=== PATIENT | male | born 1940 | race Caucasian/White ===

== ENCOUNTER 2020-03-10 07:20 | Outpatient (CLI) | payer MEDICARE, SELFPAY | END 2020-03-10 07:21 | disposition home or self-care (01) | PROVIDERS: PCP Internal Medicine; Visit Provider Internal Medicine | DX: R06.00 Dyspnea, unspecified (principal); I25.10 Atherosclerotic heart disease of native coronary artery without angina pectoris | CPT/HCPCS: 93306 ==

== ENCOUNTER 2020-06-23 08:59 | Outpatient (CLI) | payer MEDICARE, SELFPAY ==
--- NOTE | ~2020-06-23 | XR_ITS ---
EXAMINATION: XR chest 2V 06/23/2020 09:41 INDICATION: Hypertension. Coronary artery disease. PROCEDURE: 2 view chest COMPARISON: 09/06/2018 FINDINGS: The lungs are clear. The cardiomediastinal silhouette is within normal limits. There are no pleural effusions. There is no pneumothorax suspected. IMPRESSION: 1: NO ACUTE CARDIOPULMONARY DISEASE. Reviewed, dictated and finalized at location B.
[2020-06-23 09:19] LABS: Basophils Absolute Auto 0.01 K/mm3 (0.00-0.10); Basophils Percent Auto 0.2 % (0.0-1.0); Eosinophils Absolute Auto 0.07 K/mm3 (0.02-0.50); Eosinophils Percent Auto 1.6 % (1.0-6.0); Hematocrit 37.5 % (37.0-46.0); Hemoglobin 12.5 g/dL (12.4-15.3); Immature Granulocyte Absolute 0.01 K/mm3 (0.00-0.00); Immature Granulocyte Percent A 0.2 % (0.0-0.0); Lymphocytes Absolute Auto 1.38 K/mm3 (1.10-4.50); Lymphocytes Percent Auto 32.5 % (18.0-42.0); Mean Corpuscular HGB Conc 33.3 g/dL (32.0-36.0); Mean Corpuscular Volume 95.9 fL (78.0-102.0); Mean Platelet Volume 9.6 fl (8.7-11.0); Monocytes Absolute Auto 0.49 K/mm3 (0.10-0.90); Monocytes Percent Auto 11.5 % (2.0-11.0); Neutrophils Absolute Auto 2.3 K/mm3 (1.7-7.2); Platelet Count Result 152 K/mm3 (150-420); Red Blood Count 3.91 M/mm3 (4.70-6.10); Red Cell Distribution Width 12.7 % (11.6-14.4); White Blood Count 4.3 K/mm3 (4.8-10.8)
[2020-06-23 09:29] LABS: Add Urine Microscopic? YES; Appearance Urine Clear (Clear); Bilirubin Urine Negative (Negative); Blood Urine Negative (Negative); Color Urine Yellow (Yellow); Glucose Urine UA Negative (Negative); Ketones Urine Negative (Negative); Leukocyte Esterase Ur Negative LEU/UL (Negative); Nitrate Urine Positive (Negative); Protein Urine Negative (Negative); Specific Grav Ur >= 1.030 (1.010-1.020); Urobilinogen Urine 0.2 mg/dL (0.2-1.0)
--- NOTE | 2020-06-23 09:30 | ECG_ITS ---
Measurements Intervals [place] Rate: 53 P: 64 LA: 233 QRS: 31 QRSD: 109 T: 61 QT: 421 QTc: 395 Interpretive Statements SINUS BRADYCARDIA WITH FIRST DEGREE AV BLOCK ATRIAL PREMATURE COMPLEXES DELAYED PRECORDIAL R/S TRANSITION ABNORMAL ECG Electronically Signed On 06-23-2020 11:07:25 CDT by Ced Whitten D.O.
[2020-06-23 09:35] LABS: Partial Thromboplastin Time 30.3 SEC (22.3-31.6); Prothrombin Time 10.8 Seconds (9.64-11.0)
[2020-06-23 09:38] LABS: Bacteria Urine Trace /hpf; RBC Urine 0-2 /hpf (0-2); WBC Urine 0-3 /hpf (0-3)
[2020-06-23 09:39] LABS: Mucus Urine Moderate /lpf
[2020-06-23 10:01] LABS: Anion Gap 5 mmol/L (8-16); Blood Urea Nitrogen 18 mg/dL (7-18); Calcium 9.1 mg/dL (8.5-10.1); Carbon Dioxide 31 mmol/L (21-32); Chloride 106 mmol/L (98-108); Estimated Glomerular Filt Rate > 60; Glucose 99 mg/dL (70-99); Osmolality Calculated 295 mOsm/kg (285-295); Potassium 4.5 mmol/L (3.5-5.1); Sodium 142 mmol/L (136-145)
== END 2020-06-23 09:00 | disposition home or self-care (01) ==
PROVIDERS: PCP Internal Medicine; Visit Provider Internal Medicine
DX: E53.8 Deficiency of other specified B group vitamins (principal); I10 Essential (primary) hypertension; I25.10 Atherosclerotic heart disease of native coronary artery without angina pectoris; Z01.818 Encounter for other preprocedural examination; Z51.81 Encounter for therapeutic drug level monitoring; R82.90 Unspecified abnormal findings in urine
CPT/HCPCS: 36415; 71046; 80048; 81001; 85025; 85610; 85730; 87086; 93005

== ENCOUNTER 2020-09-11 11:37 | Outpatient (CLI) | payer MEDICARE, SELFPAY ==
--- NOTE | ~2020-09-11 | XR_ITS ---
XR foot LT min 3V DATE: 09/11/2020 12:00 INDICATION: Left foot pain, fourth digit. No known injury. TECHNIQUE: 4 views COMPARISON: None FINDINGS: Prominent posterior calcaneal enthesopathy. There is osteoarthritic change at the distal interphalangeal joint of the third digit No fracture, dislocation, periosteal reaction or bone destruction. IMPRESSION: Posterior calcaneal enthesopathy Osteoarthritic change at distal interphalangeal joint of third digit Reviewed, dictated and finalized at location A. 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
== END 2020-09-11 11:38 | disposition home or self-care (01) ==
LOC: CHSIMG 11:39
PROVIDERS: PCP Internal Medicine; Visit Provider Podiatrist
DX: M79.672 Pain in left foot (principal)
CPT/HCPCS: 73630

== ENCOUNTER 2020-12-19 07:45 | Outpatient (RCR) | payer MEDICARE, SELFPAY ==
--- NOTE | 2020-12-19 07:37 | PTOPEVAL ---
Thank you for referring Andre Godfrey to [facility].? The patient is scheduled to be seen for therapy? __2__x/week for 12 visits. Please review, sign, date and return this plan of care OPAL. I agree with and certify that the following plan of care is medically necessary. Referring Physician Date Admitting Provider: Attending Provider: Michael Addison MD Referring Provider: *PT Outpatient Evaluation Start: 12/19/20 07:00 Freq: Status: Active Protocol: Document 12/19/20 07:00 DAVID (Rec: 12/19/20 07:36 DAVID [email or web address]) Therapy Assessment Status Assessment Status Assessment Status Evaluation Evaluation Information Problem Diagnosis abnormal gait Onset 07/11/20 Subjective Information Pt. reports that he underwent Query Text:As Reported By Patient/ back surgery on 07/11/20. He Family reports that following back surgery he started noticing weakness in the left leg around the ankle. He reports that he enjoys bicycling but notes difficulty with pushing with the left leg. He denies falling or stumbling, but states that he has to pay attention to how he walks. He reports that his goal is to improve his strength. Prior Level of Function Activity Level (Last 3 Months) Occupation retired Hand Dominance Right Activity of Daily Living Ability Independent Indoor/Home Mobility Independent Community Mobility Independent Stairs Ability Independent Functional Cognition (Planning, Shopping Independent , Taking Medications) Cooking Yes Cleaning Yes Laundry Yes Shopping Yes Driving Yes Pain Assessment Self Report Self Report Pain Level 0 Pain Score Pain Score 0: Self Report Cervical and Lumbar ROM Lumbar ROM Lumbar Flexion Active Ankle Query Text:Hands to: Lumbar Extension (0-40) 5 Query Text:Active in Degrees Lumbar Lateral Flexion Right (0-40) 25 Query Text:Active in Degrees Lumbar Lateral Flexion Left (0-40) 25 Query Text:Active in Degrees Lower Extremity Muscle Strength Testing General Lower Extremity Strength Gross Lower Extremity Strength right hip flexion 5/5 left hip flexion 4/5 right knee flexion 5/5
== END 2021-01-25 09:12 | disposition home or self-care (01) ==
LOC: CHSPT 07:45
PROVIDERS: PCP Internal Medicine; Visit Provider Internal Medicine
DX: R53.1 Weakness (principal); R26.9 Unspecified abnormalities of gait and mobility
CPT/HCPCS: 97110; 97161; 97530

== ENCOUNTER 2021-02-07 08:16 | Outpatient (CLI) | payer MEDICARE, SELFPAY ==
--- NOTE | 2021-02-07 11:00 | NEURO_ITS ---
Impression: # Complains of paresthesia in left lower extremity and difficulty in use of left foot. 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 # Higher involvement cannot be ruled out. Nerve Conduction Studies Anti Sensory Summary Table Stim Site NR Peak (ms) P-T Amp (?V) Site1 Site2 Delta-P (ms) Dist (cm) Manjinder (m/s) Left Sup Fibular Anti Sensory (Ant Lat Mall) 14 cm 3.8 5.1 14 cm Ant Lat Mall 3.8 16.0 42 Left Sural Anti Sensory (Lat Mall) Calf 3.9 14.8 Calf Lat Mall 3.9 16.0 41 Motor Summary Table Stim Site NR Onset (ms) O-P Amp (mV) Site1 Site2 Delta-0 (ms) Dist (cm) Manjinder (m/s) Left Lateral Plantar Motor (ADM) Med Mall 5.6 0.4 Left Peroneal Motor (Vastus Med) Ankle 5.9 0.8 Popit Ankle 10.4 39.0 38 Popit 16.3 0.8 Left Tibial Motor (Abd Castaneda Brev) Ankle 5.9 0.1 Knee Ankle 12.3 43.0 35 Knee 18.2 0.5 F Wave Studies NR F-Lat (ms) L-R F-Lat (ms) Left Peroneal (Mrkrs) (EDB) 57.16 Left Tibial (Mrkrs) (Abd Hallucis) 58.13 EMG Side Muscle Nerve Root Ins Act Fibs Amp Dur Recrt Comment Left AntTibialis Dp Br Fibular L4-5 Nml Nml Nml Nml Nml Left Gastroc Tibial S1-2 Nml Nml Nml Nml Nml Left Fibularis Long Sup Br Fibular L5-S1 Nml Nml Nml Nml Nml Left Flex Dig Long Tibial L5-S2 Nml Nml Nml Nml Nml Left Ext Dig Brev Dp Br Fibular L5, S1 Nml Nml Nml Nml Nml MTDD
== END 2021-02-07 08:17 | disposition home or self-care (01) ==
LOC: ANHNEURO 08:19
PROVIDERS: PCP Internal Medicine; Visit Provider Family Medicine
DX: R20.2 Paresthesia of skin (principal); G62.9 Polyneuropathy, unspecified
CPT/HCPCS: 95886; 95909

== ENCOUNTER 2021-02-23 09:04 | Outpatient (CLI) | payer MEDICARE, SELFPAY ==
[2021-02-23 09:21] LABS: Add Urine Microscopic? YES; Appearance Urine Clear (Clear); Basophils Absolute Auto 0.02 K/mm3 (0.00-0.10); Basophils Percent Auto 0.4 % (0.0-1.0); Bilirubin Urine 1+ (Negative); Blood Urine Negative (Negative); Color Urine Yellow (Yellow); Eosinophils Absolute Auto 0.07 K/mm3 (0.02-0.50); Eosinophils Percent Auto 1.5 % (1.0-6.0); Glucose Urine UA Negative (Negative); Hematocrit 39.6 % (37.0-46.0); Hemoglobin 13.3 g/dL (12.4-15.3); Immature Granulocyte Absolute 0.01 K/mm3 (0.00-0.00); Immature Granulocyte Percent A 0.2 % (0.0-0.0); Ketones Urine Trace (Negative); Leukocyte Esterase Ur Negative (Negative); Lymphocytes Absolute Auto 1.63 K/mm3 (1.10-4.50); Mean Corpuscular HGB Conc 33.6 g/dL (32.0-36.0); Mean Corpuscular Hemoglobin 30.9 pg (27.0-31.0); Mean Corpuscular Volume 91.9 fL (78.0-102.0); Monocytes Absolute Auto 0.48 K/mm3 (0.10-0.90); Neutrophils Absolute Auto 2.6 K/mm3 (1.7-7.2); Neutrophils Percent Auto 53.9 % (50.0-70.0); Nitrate Urine Negative (Negative); Platelet Count Result 171 K/mm3 (150-420); Protein Urine Negative (Negative); Red Blood Count 4.31 M/mm3 (4.70-6.10); Red Cell Distribution Width 12.1 % (11.6-14.4); Specific Grav Ur >= 1.030 (1.010-1.020); White Blood Count 4.8 K/mm3 (4.8-10.8); pH Urine 5.5 (5.0-8.0)
[2021-02-23 09:27] LABS: Bacteria Urine Trace /hpf; Mucus Urine Moderate /lpf; RBC Urine None seen /hpf (0-2); WBC Urine None seen /hpf (0-3)
[2021-02-23 10:40] LABS: Alanine Aminotransferase 33 U/L (16-63); Alkaline Phosphatase 48 U/L (46-116); Anion Gap 7 mmol/L (8-16); Aspartate Amino Transferase 29 U/L (15-37); Blood Urea Nitrogen 20 mg/dL (7-18); Calcium 8.9 mg/dL (8.5-10.1); Carbon Dioxide 29 mmol/L (21-32); Chloride 106 mmol/L (98-108); Cholesterol 111 mg/dL (0-200); Creatine Kinase 260 U/L (39-308); Estimated Glomerular Filt Rate > 60; Glucose 99 mg/dL (70-99); HDL Direct 51 mg/dL (40-60); LDL Cholesterol Calculated 46 mg/dL (<130); Osmolality Calculated 296 mOsm/kg (285-295); Potassium 4.7 mmol/L (3.5-5.1); Sodium 142 mmol/L (136-145); Total Protein 6.8 g/dL (6.4-8.2); Triglycerides 70 mg/dL (0-150); Vitamin B12 1008 pg/mL (193-986)
== END 2021-02-23 09:05 | disposition home or self-care (01) ==
LOC: CHSLAB 09:06
PROVIDERS: PCP Internal Medicine; Visit Provider Internal Medicine
DX: E78.2 Mixed hyperlipidemia (principal); I10 Essential (primary) hypertension; G62.9 Polyneuropathy, unspecified
CPT/HCPCS: 36415; 80053; 80061; 81001; 82550; 82607; 85025

== ENCOUNTER → 2021-08-02 08:19 | Outpatient (CLI) | payer MEDICARE, SELFPAY ==
--- NOTE | ~2021-08-02 | MR_ITS ---
EXAMINATION: MR lumbar spine wo [facility] EXAM DATE: 08/02/2021 08:55 INDICATION: Lumbosacral radiculopathy TECHNIQUE: Multi-sequential, multiplanar MR images of the lumbar spine were obtained without contrast . Sagittal T1, T2, T2 fat saturation images. Axial T2 weighted images. Comparison is made to prior examination from 10/18/2019. FINDINGS: There has been interval left hemilaminotomy at L1-2, with posterior decompression. There is moderate disc disease T10-11, mild to moderate T11-12, T12-L1 and L5-S1. There is moderate disc dise ase L1-L3, moderate to severe L3-L5. The conus medullaris terminates at the L1 level and has normal s ignal intensity and morphology. Multilevel endplate degenerative signal change. There is 2-3 mm retr olisthesis L2 on L3, 3 mm retrolisthesis L3 on L4 and L4 on L5. Paraspinal soft tissue is unremarkabl e. Level by level evaluation: T12-L1: There is a mild to moderate diffuse disc bulge. Facet arthropathy: Moderate to severe . Ligamentum flavum enlargement. Neural foraminal stenosis: Mild bilateral. Central canal stenosis: Mild to moderate. L1-L2: There is a moderate diffuse disc bulge. Facet arthropathy: Moderate. Neural foraminal stenosis: Mild to moderate left, mild right. Central canal stenosis: Mild, interval posterior decompression. L2-L3: There is a moderate diffuse disc bulge. Facet arthropathy: Moderate. Neural foraminal stenosis: Mild to moderate bilateral. Central canal stenosis: Mild to moderate. L3-L4: There is a moderate diffuse disc bulge. Facet arthropathy: Moderate to severe. Neural foraminal stenosis: Moderate bilateral. Central canal stenosis: Mild. L4-L5: There is a moderate to large diffuse disc bulge. Facet arthropathy: Moderate to severe. Neural foraminal stenosis: Moderate to severe bilateral. Central canal stenosis: Mild. L5-S1: There is a moderate diffuse disc bulge. Facet arthropathy: Moderate. Neural foraminal stenosis: Moderate to severe right, mild to moderate left. Central canal stenosis: Mild. As previously stated, there is been interval left hemilaminotomy at L1-2. Otherwise, it is difficult to appreciate any significant interval change. IMPRESSION: Moderate to severe lumbar spondylosis. Reviewed, dictated and finalized at location B.
== END ==
PROVIDERS: PCP Internal Medicine
DX: M47.25 Other spondylosis with radiculopathy, thoracolumbar region (principal); M48.05 Spinal stenosis, thoracolumbar region; M47.27 Other spondylosis with radiculopathy, lumbosacral region; M48.07 Spinal stenosis, lumbosacral region
CPT/HCPCS: 72148

== ENCOUNTER 2021-09-10 07:27 | Outpatient (CLI) | payer MEDICARE, SELFPAY ==
--- NOTE | ~2021-09-10 | MR_ITS ---
EXAMINATION: MR knee RT wo con DATE: 09/10/2021 08:34 INDICATION: Right knee pain TECHNIQUE: Magnetic resonance imaging (MRI) of the right knee was performed without intravenous contr ast. Sequences included coronal PD-weighted FSE, coronal PD-weighted FS FSE, sagittal T2-weighted FS E, sagittal PD-weighted FS FSE and axial PD weighted fat saturated FSE. COMPARISON: None. FINDINGS: Medial compartment: Complex medial meniscal tear with macerated appearance near the posterior root and more extensive turner gitudinal horizontal tear component extending across the posterior horn into the meniscal body. There is deep chondral ulceration and fissuring at the central weightbearing medial femoral condyle. There is partial thickness cartilage loss with chondral surface regularity along the more anterior and pos terior weightbearing medial femoral condyle and with smooth chondral surface along the medial tibial plateau. There is subtle depression with flattening of a portion of the articular cortex at the anter ior weightbearing medial femoral condyle with prominent increased marrow signal surrounding a curvili near low signal intensity subarticular fracture line. Lateral compartment: Normal variant medial oblique meniscal meniscal ligament extending from the region of the anterior ro ot of the medial meniscus across the intercondylar eminence to its confluence with the medial posteri or horn of the lateral meniscus. Lateral meniscus is otherwise normal. Partial-thickness chondral fis suring involving less than 50% the cartilage thickness at the central to medial aspect of the lateral tibial plateau and juxtaposed anterior weightbearing lateral femoral condyle. Patellofemoral compartment: Small central subchondral osteophyte and minimal subarticular edema at the site of deep chondral ulce ration along the medial patellar facet. Partial-thickness chondral fissuring along the apical ridge a nd at the central aspect of the lateral facet. Trochlear cartilage is normal. Ligaments and tendons: Anterior and posterior cruciate ligaments are normal. Mild thickening and mild increased signal at th e proximal aspect of the medial and fibular collateral ligaments without significant surrounding martha a likely sequela of mild scarring related to chronic sprains. The extensor mechanism is normal. The v isualized medial and lateral hamstring tendons as well as the iliotibial band are normal. Fluid: Moderate-sized knee joint effusion. No loose osteochondral bodies identified. Synovitis within a 3.2 x 3.0 x 0.6 similar prepatellar bursa with prominent surrounding subcutaneous edema. There is additio nal likely reactive soft tissue edema along side the medial femoral condyle. IMPRESSION: 1. Complex medial meniscal tear. 2. Slight depression of the articular cortex at the anterior weightbearing medial femoral condyle wit h prominent marrow edema surrounding a subchondral fracture with mild flattening of the articular cor renato which could be due to discrete trauma, insufficiency fracture or most likely stress fracture rela keyonna to altered stress distribution resulting from the meniscal tear. 3. 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 4. Mild scarring consistent with chronic sprains of the proximal medial and fibular collateral ligame nts. 5. Prepatellar bursitis. 6. Likely reactive moderate sized knee joint effusion. Reviewed, dictated and finalized at location B. 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 Complex medial meniscal tear. 2. Slight depression of the articular cortex at the anterior weightbearing medi al femoral condyle w
== END 2021-09-10 07:28 | disposition home or self-care (01) ==
LOC: ANHIMG 07:31
PROVIDERS: PCP Internal Medicine; Visit Provider Internal Medicine
DX: M25.561 Pain in right knee (principal); S83.231A Complex tear of medial meniscus, current injury, right knee, initial encounter; M79.89 Other specified soft tissue disorders; M17.11 Unilateral primary osteoarthritis, right knee; M94.261 Chondromalacia, right knee; M71.561 Other bursitis, not elsewhere classified, right knee; M25.461 Effusion, right knee
CPT/HCPCS: 73721

== ENCOUNTER 2021-10-03 10:41 | Outpatient (CLI) | payer MEDICARE, SELFPAY ==
[2021-10-03 10:57] LABS: Basophils Absolute Auto 0.02 K/mm3 (0.00-0.10); Basophils Percent Auto 0.4 % (0.0-1.0); Eosinophils Absolute Auto 0.07 K/mm3 (0.02-0.50); Eosinophils Percent Auto 1.4 % (1.0-6.0); Immature Granulocyte Absolute 0.01 K/mm3 (0.00-0.00); Immature Granulocyte Percent A 0.2 % (0.0-0.0); Lymphocytes Absolute Auto 1.08 K/mm3 (1.10-4.50); Lymphocytes Percent Auto 22.1 % (18.0-42.0); Mean Corpuscular HGB Conc 32.5 g/dL (32.0-36.0); Mean Corpuscular Hemoglobin 30.9 pg (27.0-31.0); Mean Platelet Volume 9.8 fl (8.7-11.0); Monocytes Absolute Auto 0.46 K/mm3 (0.10-0.90); Monocytes Percent Auto 9.4 % (2.0-11.0); Neutrophils Absolute Auto 3.3 K/mm3 (1.7-7.2); Neutrophils Percent Auto 66.5 % (50.0-70.0); Platelet Count Result 168 K/mm3 (150-420); Red Blood Count 4.21 M/mm3 (4.70-6.10); Red Cell Distribution Width 12.1 % (11.6-14.4); White Blood Count 4.9 K/mm3 (4.8-10.8)
[2021-10-03 10:58] LABS: Add Urine Microscopic? NO; Appearance Urine Clear (Clear); Bilirubin Urine Negative (Negative); Blood Urine Negative (Negative); Color Urine Yellow (Yellow); Glucose Urine UA Negative (Negative); Ketones Urine Negative (Negative); Leukocyte Esterase Ur Negative (Negative); Nitrate Urine Negative (Negative); Protein Urine Negative (Negative); Specific Grav Ur >= 1.030 (1.010-1.020); Urobilinogen Urine 0.2 mg/dL (0.2-1.0); pH Urine 5.5 (5.0-8.0)
[2021-10-03 11:46] LABS: Alanine Aminotransferase 26 U/L (16-63); Albumin Level 3.9 g/dL (3.4-5.0); Alkaline Phosphatase 48 U/L (46-116); Anion Gap 6 mmol/L (8-16); Aspartate Amino Transferase 28 U/L (15-37); Bilirubin,Total 1.1 mg/dL (0.00-1.00); Blood Urea Nitrogen 17 mg/dL (7-18); Carbon Dioxide 31 mmol/L (21-32); Chloride 107 mmol/L (98-108); Cholesterol 113 mg/dL (0-200); Creatine Kinase 254 U/L (39-308); Estimated Glomerular Filt Rate > 60; Glucose 97 mg/dL (70-99); HDL Direct 54 mg/dL (40-60); LDL Cholesterol Calculated 38 mg/dL (<130); Osmolality Calculated 299 mOsm/kg (285-295); Sodium 144 mmol/L (136-145); Total Protein 6.7 g/dL (6.4-8.2); Triglycerides 106 mg/dL (0-150); Vitamin B12 > 2000 pg/mL (193-986)
== END 2021-10-03 10:42 | disposition home or self-care (01) ==
LOC: CHSLAB 10:45
PROVIDERS: PCP Internal Medicine; Visit Provider Internal Medicine
DX: E78.2 Mixed hyperlipidemia (principal); I10 Essential (primary) hypertension; E53.8 Deficiency of other specified B group vitamins; I25.10 Atherosclerotic heart disease of native coronary artery without angina pectoris
CPT/HCPCS: 36415; 80053; 80061; 81003; 82550; 82607; 85025

== ENCOUNTER 2022-02-06 08:10 | Outpatient (RCR) | payer MEDICARE, SELFPAY ==
--- NOTE | 2022-02-06 08:18 | PTOPEVAL ---
Thank you for referring Andre Godfrey to [facility].? The patient is scheduled to be seen for therapy? ____x/week for ___ weeks. Please review, sign, date and return this plan of care OPAL. I agree with and certify that the following plan of care is medically necessary. Referring Physician Date Admitting Provider: Attending Provider: Michael Addison MD Referring Provider: *PT Outpatient Evaluation Start: 02/06/22 06:54 Freq: Status: Active Protocol: Document 02/06/22 07:00 GERALD (Rec: 02/06/22 08:18 [facility] [email or web address]) Therapy Assessment Status Assessment Status Assessment Status Evaluation Evaluation Information Problem Diagnosis L drop foot Onset 01/31/22 Additional Evaluation Detail LEFS = 30% functionally declined Subjective Information patient reports he had back Query Text:As Reported By Patient/ surgery on 07/11/2020. he Family reports he has noticed a foot drop since the surgery. he reports he has seen several specialists and they have not been able to determine the source of the problem. he reports he is wanting to try acupuncture to the L lower leg . he reports he is able to ride a bike, but is unable to walk long distances. he reports he has no pain. 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 he reports at home he difficulty picking up leaves and bending over due to the back. he reports his main goal is to walk better. Prior Level of Function Comments Additional Prior Level of Function patient has been having issues Comments with the L ankle strength for several years now. Pain Assessment Timing of Pain Assessment Timing of Pain Assessment Assessment Pain Scale Pain Scale Used Numeric (1 - 10) Self Report Pain Assessment Lower Back Reported Pain Level 0 Greatest Pain Intensity 0 Pain Score Pain Score 0: Self Report Interventions Used Interventions Used By Clinicians Activity or ADL's,Education, Environment Modification,
--- NOTE | 2022-03-15 13:34 | PTOPEVAL ---
Thank you for referring Andre Godfrey to [facility].? The patient is scheduled to be seen for therapy? ____x/week for ___ weeks. Please review, sign, date and return this plan of care OPAL. I agree with and certify that the following plan of care is medically necessary. Referring Physician Date Admitting Provider: Attending Provider: Michael Addison MD Referring Provider: *PT Outpatient Evaluation Start: 02/06/22 06:54 Freq: Status: Active Protocol: Document 03/08/22 15:00 GERALD (Rec: 03/08/22 16:04 GERALD [email or web address]) Therapy Assessment Status Assessment Status Assessment Status Discharge Evaluation Information Problem Diagnosis L drop foot Onset 01/31/22 Additional Evaluation Detail LEFS = 35% functionally declined Subjective Information Pt reports that his ankle has Query Text:As Reported By Patient/ made little progress since Family starting therapy in early February. He states that his biggest challenge is walking naturally as his jarocho will not allow him to walk naturally. He says he feels like he has a limp in his L leg. He states that he also has neuropathy in both feet and his foot is sometimes numb . Pain Assessment Timing of Pain Assessment Timing of Pain Assessment Pre-Treatment Self Report Self Report Pain Level 0 Pain Score Pain Score 0: Self Report Lower Extremity Range of Motion Ankle/Foot Range of Motion Left Ankle Dorsiflexion With Knee Extension 25 Range of Motion - Active Ankle Plantarflexion Range of Motion - 45 Active Query Text: Ankle Eversion Range of Motion - Active 10 Ankle Inversion Range of Motion - Active 35 Right Ankle Dorsiflexion With Knee Extension 25 Range of Motion - Active Ankle Plantarflexion Range of Motion - 45 Active Query Text: Ankle Eversion Range of Motion - Active 10 Ankle Inversion Range of Motion - Active 40 Lower Extremity Muscle Strength Testing Ankle Strength Left Ankle Dorsiflexion Strength 5 Normal Ankle Plantarflexion Strength 5 Normal Ankle Eversion Strength 5 Normal Ankle Inversion Strength 5 Normal Ankle Strength Comments 5/5 L ankle PF strength against mmt. however, patient unable to perform 1 single leg heel raise on the L, or
== END 2022-03-08 15:10 | disposition home or self-care (01) ==
LOC: CHSPT 08:10
PROVIDERS: PCP Internal Medicine; Visit Provider Internal Medicine
DX: M21.372 Foot drop, left foot (principal)
CPT/HCPCS: 97110; 97161; 97530

== ENCOUNTER 2022-03-01 09:18 | Outpatient (CLI) | payer MEDICARE, SELFPAY ==
--- NOTE | ~2022-03-01 | CT_ITS ---
EXAMINATION: CT abdomen pelvis wo con DATE: 03/01/2022 11:13 INDICATION: Diverticulitis presenting with lower abdominal pain and diarrhea. TECHNIQUE: Computed tomography (CT) of the abdomen and pelvis was performed without intravenous contr ast. Automated exposure control and iterative reconstruction technique were employed. The dose-length product was 906.76 mGy-cm. COMPARISON: None FINDINGS: Bilateral lung bases are clear. Heart size is normal. Atherosclerotic coronary artery calcification. No pericardial or pleural effusion. Liver, gallbladder, spleen and bilateral adrenal glands are cris l. Punctate calcification at the body of the pancreas may represent sequela of chronic pancreatitis. No bowel obstruction. Chronic mild diffuse fatty infiltration of the colonic wall likely related to b luzmaria habitus. Bladder is normal. No free intraperitoneal gas or fluid. No pathologically enlarged abdo renetta or pelvic lymphadenopathy. Severe thoracolumbar spondylosis with multiple Schmorl's nodes. IMPRESSION: 1. No acute intra-abdominal/pelvic process. Reviewed, dictated and finalized at location B.
[2022-03-01 09:48] LABS: Basophils Absolute Auto 0.02 K/mm3 (0.00-0.10); Basophils Percent Auto 0.4 % (0.0-1.0); Eosinophils Absolute Auto 0.06 K/mm3 (0.02-0.50); Eosinophils Percent Auto 1.3 % (1.0-6.0); Hematocrit 38.4 % (37.0-46.0); Hemoglobin 12.6 g/dL (12.4-15.3); Immature Granulocyte Absolute 0.02 K/mm3 (0.00-0.00); Immature Granulocyte Percent A 0.4 % (0.0-0.0); Lymphocytes Absolute Auto 0.82 K/mm3 (1.10-4.50); Lymphocytes Percent Auto 17.2 % (18.0-42.0); Mean Corpuscular HGB Conc 32.8 g/dL (32.0-36.0); Mean Corpuscular Hemoglobin 31.3 pg (27.0-31.0); Mean Corpuscular Volume 95.5 fL (78.0-102.0); Mean Platelet Volume 9.4 fl (8.7-11.0); Monocytes Absolute Auto 0.46 K/mm3 (0.10-0.90); Monocytes Percent Auto 9.6 % (2.0-11.0); Neutrophils Absolute Auto 3.4 K/mm3 (1.7-7.2); Neutrophils Percent Auto 71.1 % (50.0-70.0); Platelet Count Result 159 K/mm3 (150-420); Red Blood Count 4.02 M/mm3 (4.70-6.10); Red Cell Distribution Width 12.3 % (11.6-14.4); White Blood Count 4.8 K/mm3 (4.8-10.8)
[2022-03-01 10:03] LABS: Alanine Aminotransferase 26 U/L (16-63); Alkaline Phosphatase 48 U/L (46-116); Anion Gap 4 mmol/L (8-16); Aspartate Amino Transferase 32 U/L (15-37); Blood Urea Nitrogen 19 mg/dL (7-18); Calcium 8.9 mg/dL (8.5-10.1); Carbon Dioxide 31 mmol/L (21-32); Chloride 105 mmol/L (98-108); Estimated Glomerular Filt Rate > 60; Glucose 108 mg/dL (70-99); Osmolality Calculated 293 mOsm/kg (285-295); Potassium 4.7 mmol/L (3.5-5.1); Sodium 140 mmol/L (136-145); Total Protein 7.1 g/dL (6.4-8.2)
== END 2022-03-01 09:19 | disposition home or self-care (01) ==
LOC: CHSLAB 09:24
PROVIDERS: PCP Internal Medicine; Visit Provider Internal Medicine
DX: R10.32 Left lower quadrant pain (principal); R19.7 Diarrhea, unspecified
CPT/HCPCS: 74176; 80053; 85025; 87045; 87324; 87427

== ENCOUNTER 2022-04-02 08:10 | Outpatient (CLI) | payer MEDICARE, SELFPAY ==
[2022-04-02 08:31] LABS: Add Urine Microscopic? NO; Appearance Urine Clear (Clear); Bilirubin Urine Negative (Negative); Blood Urine Negative (Negative); Color Urine Yellow (Yellow); Glucose Urine UA Negative (Negative); Ketones Urine Negative (Negative); Leukocyte Esterase Ur Negative (Negative); Nitrate Urine Negative (Negative); Protein Urine Negative (Negative); Specific Grav Ur >= 1.030 (1.010-1.020); Urobilinogen Urine 0.2 mg/dL (0.2-1.0)
[2022-04-02 08:39] LABS: Basophils Absolute Auto 0.01 K/mm3 (0.00-0.10); Basophils Percent Auto 0.3 % (0.0-1.0); Eosinophils Absolute Auto 0.08 K/mm3 (0.02-0.50); Hematocrit 38.8 % (37.0-46.0); Hemoglobin 13.1 g/dL (12.4-15.3); Immature Granulocyte Absolute 0.01 K/mm3 (0.00-0.00); Immature Granulocyte Percent A 0.3 % (0.0-0.0); Lymphocytes Absolute Auto 1.08 K/mm3 (1.10-4.50); Lymphocytes Percent Auto 27.1 % (18.0-42.0); Mean Corpuscular HGB Conc 33.8 g/dL (32.0-36.0); Mean Corpuscular Hemoglobin 31.5 pg (27.0-31.0); Mean Corpuscular Volume 93.3 fL (78.0-102.0); Mean Platelet Volume 9.6 fl (8.7-11.0); Monocytes Absolute Auto 0.36 K/mm3 (0.10-0.90); Neutrophils Absolute Auto 2.5 K/mm3 (1.7-7.2); Neutrophils Percent Auto 61.3 % (50.0-70.0); Platelet Count Result 149 K/mm3 (150-420); Red Blood Count 4.16 M/mm3 (4.70-6.10)
[2022-04-02 08:50] LABS: Hemoglobin A1C 5.4 % (<5.7)
[2022-04-02 09:27] LABS: Alanine Aminotransferase 29 U/L (16-63); Albumin Level 3.8 g/dL (3.4-5.0); Alkaline Phosphatase 47 U/L (46-116); Anion Gap 7 mmol/L (8-16); Aspartate Amino Transferase 26 U/L (15-37); Bilirubin,Total 0.9 mg/dL (0.00-1.00); Blood Urea Nitrogen 18 mg/dL (7-18); Calcium 8.3 mg/dL (8.5-10.1); Carbon Dioxide 28 mmol/L (21-32); Chloride 107 mmol/L (98-108); Cholesterol 108 mg/dL (0-200); Creatine Kinase 187 U/L (39-308); Estimated Glomerular Filt Rate > 60; Glucose 101 mg/dL (70-99); HDL Direct 57 mg/dL (40-60); LDL Cholesterol Calculated 40 mg/dL (<130); Osmolality Calculated 295 mOsm/kg (285-295); Potassium 4.1 mmol/L (3.5-5.1); Prostate Specific Antigen 0.3 ng/mL (< OR = 4.0); Sodium 142 mmol/L (136-145); Total Protein 6.8 g/dL (6.4-8.2); Triglycerides 56 mg/dL (0-150)
[2022-04-02 09:28] LABS: Vitamin B12 > 2000 pg/mL (193-986)
== END 2022-04-02 08:11 | disposition home or self-care (01) ==
LOC: CHSLAB 08:12
PROVIDERS: PCP Internal Medicine; Visit Provider Internal Medicine
DX: E78.2 Mixed hyperlipidemia (principal); I10 Essential (primary) hypertension; G62.9 Polyneuropathy, unspecified; R79.0 Abnormal level of blood mineral; Z12.5 Encounter for screening for malignant neoplasm of prostate
CPT/HCPCS: 36415; 80053; 80061; 81003; 82550; 82607; 83036; 84153; 85025; G0103

== ENCOUNTER 2022-05-22 14:12 | Outpatient (CLI) | payer MEDICARE, SELFPAY ==
[2022-05-22 14:24] LABS: Basophils Absolute Auto 0.01 K/mm3 (0.00-0.10); Basophils Percent Auto 0.2 % (0.0-1.0); Eosinophils Absolute Auto 0.05 K/mm3 (0.02-0.50); Eosinophils Percent Auto 0.9 % (1.0-6.0); Hematocrit 36.9 % (37.0-46.0); Hemoglobin 12.5 g/dL (12.4-15.3); Immature Granulocyte Absolute 0.03 K/mm3 (0.00-0.00); Immature Granulocyte Percent A 0.6 % (0.0-0.0); Lymphocytes Percent Auto 24.3 % (18.0-42.0); Mean Corpuscular HGB Conc 33.9 g/dL (32.0-36.0); Mean Corpuscular Hemoglobin 31.6 pg (27.0-31.0); Mean Corpuscular Volume 93.2 fL (78.0-102.0); Mean Platelet Volume 9.7 fl (8.7-11.0); Monocytes Absolute Auto 0.49 K/mm3 (0.10-0.90); Monocytes Percent Auto 9.1 % (2.0-11.0); Neutrophils Absolute Auto 3.5 K/mm3 (1.7-7.2); Neutrophils Percent Auto 64.9 % (50.0-70.0); Platelet Count Result 183 K/mm3 (150-420); Red Blood Count 3.96 M/mm3 (4.70-6.10); Red Cell Distribution Width 12.1 % (11.6-14.4); White Blood Count 5.4 K/mm3 (4.8-10.8)
[2022-05-22 14:34] LABS: Anion Gap 7 mmol/L (8-16); Blood Urea Nitrogen 22 mg/dL (7-18); Calcium 9.4 mg/dL (8.5-10.1); Carbon Dioxide 28 mmol/L (21-32); Chloride 106 mmol/L (98-108); Estimated Glomerular Filt Rate > 60; Glucose 92 mg/dL (70-99); Osmolality Calculated 295 mOsm/kg (285-295); Potassium 4.5 mmol/L (3.5-5.1); Sodium 141 mmol/L (136-145)
== END 2022-05-22 14:13 | disposition home or self-care (01) ==
LOC: CHSLAB 14:15
PROVIDERS: PCP Internal Medicine; Visit Provider Internal Medicine
DX: I10 Essential (primary) hypertension (principal)
CPT/HCPCS: 36415; 80048; 85025

== ENCOUNTER 2022-11-04 09:37 | Outpatient (CLI) | payer MEDICARE, SELFPAY ==
[2022-11-04 09:56] LABS: Basophils Absolute Auto 0.02 K/mm3 (0.00-0.10); Basophils Percent Auto 0.5 % (0.0-1.0); Eosinophils Absolute Auto 0.07 K/mm3 (0.02-0.50); Eosinophils Percent Auto 1.8 % (1.0-6.0); Hematocrit 38.2 % (37.0-46.0); Hemoglobin 12.7 g/dL (12.4-15.3); Immature Granulocyte Absolute 0.01 K/mm3 (0.00-0.00); Immature Granulocyte Percent A 0.3 % (0.0-0.0); Immature Reticulocyte Fraction 7.7 % (2.0-16.52); Lymphocytes Absolute Auto 0.94 K/mm3 (1.10-4.50); Lymphocytes Percent Auto 23.7 % (18.0-42.0); Mean Corpuscular HGB Conc 33.2 g/dL (32.0-36.0); Mean Corpuscular Hemoglobin 31.7 pg (27.0-31.0); Mean Corpuscular Volume 95.3 fL (78.0-102.0); Mean Platelet Volume 9.7 fl (8.7-11.0); Monocytes Absolute Auto 0.43 K/mm3 (0.10-0.90); Monocytes Percent Auto 10.9 % (2.0-11.0); Neutrophils Absolute Auto 2.5 K/mm3 (1.7-7.2); Neutrophils Percent Auto 62.8 % (50.0-70.0); Platelet Count Result 167 K/mm3 (150-420); Red Blood Count 4.01 M/mm3 (4.70-6.10); Red Cell Distribution Width 12.5 % (11.6-14.4); Reticulocyte Hemoglobin Conten 35.9 pg (28.0-35.0); Reticulocyte Percent 1.44 % (0.50-1.50); Reticulocytes Absolute 0.06 M/mm3 (0.02-0.1)
[2022-11-04 10:39] LABS: Ferritin 71 ng/mL (26-388); Iron 87 ug/dL (65-175)
== END 2022-11-04 09:38 | disposition home or self-care (01) ==
LOC: CHSLAB 09:39
PROVIDERS: PCP Internal Medicine; Visit Provider Internal Medicine
DX: D64.9 Anemia, unspecified (principal)
CPT/HCPCS: 36415; 82728; 83540; 85025; 85046

== ENCOUNTER 2022-12-17 00:54 | Day surgery (SDC) | payer MEDICARE, OTHER, SELFPAY ==
[2022-11-14 15:26] VITALS: BMI 30.2
[2022-12-11 10:44] VITALS: BMI 30.2
[2022-12-17 09:58] VITALS: BP 148/83; PULSE 64; RESP 18; TEMP 36.6; O2SAT 100
--- NOTE | 2022-12-17 10:05 | WPDANESEPPF ---
Anes - Initial Pre Proc Eval Procedure: Operation Date: 12/17/22 11:00 Proposed Procedures p Colonoscopy - Gómez Winn MD Date/Time: 12/17/22 10:05 Surgeon: Gómez Winn MD Pre Op Diagnosis: hx colon polyps Patient Data Age: 82 Gender: M Height: 1.75 m Weight: 95.5 kg Last Vital Signs Temp 97.9 F 12/17/22 09:58 Pulse 64 12/17/22 09:58 Resp 18 12/17/22 09:58 BP 148/83 H 12/17/22 09:58 Pulse Ox 100 12/17/22 09:58 O2 Del Method Room Air 12/17/22 09:58 Allergies Allergy/AdvReac Type Severity Reaction Status Date / Time No Known Allergies Allergy Verified 12/17/22 09:55 Home Medications Medication Instructions Recorded Confirmed Type aspirin 81 mg tablet 81 mg PO DAILY 11/14/22 12/17/22 History atorvastatin 40 mg tablet 40 mg PO DAILY 11/14/22 12/17/22 History celecoxib 200 mg capsule 200 mg PO DAILY 11/14/22 12/17/22 History cyanocobalamin (vitamin B-12) 1,000 mcg IM MONTHLY 11/14/22 12/17/22 History 1,000 mcg/mL injection solution finasteride 5 mg tablet 5 mg PO DAILY 11/14/22 12/17/22 History metoprolol tartrate 25 mg tablet 25 mg PO BID 11/14/22 12/17/22 History multivit,Ca,rynv-MX-gyledsiq-lutn 2 tablet PO DAILY 11/14/22 12/17/22 History 18 mg-500 mcg-300 mcg-250 mcg tablet pantoprazole 40 mg tablet,delayed 40 mg PO DAILY 11/14/22 12/17/22 History release potassium 99 mg tablet 99 mg PO DAILY 11/14/22 12/17/22 History tamsulosin 0.4 mg capsule 0.4 mg PO DAILY 11/14/22 12/17/22 History Patient hx anesthesia problems: none Family hx anesthesia problems: none Results Review: All pre-operative results and documents have been reviewed as part of the pre-operative evaluation. [facility] Family History Family History (Updated 09/22/17 @ 15:14 by DOCTOR UNKNOWN) Sibling Family history of cardiovascular disease Other Family history of malignant neoplasm Social History Social History Smoking status: Former smoker Tobacco type: cigarettes Smoking end date: 10/06/93 Alcohol intake: current Drinks per week: 5 Alcohol use details: WINE Substance use: never Substance use type: does not use Living arrangements: alone Spiritual care concerns: No Anes - Eval Final PreProcedure Day of Procedure 12/17/22 10:05 Patient weight: normal Heart: regular rate and rhythm Lungs: clear to auscultation Airway: Mallampati scale class II Neurological: alert and oriented Last oral intake: >/= 8 hours ASA classification: III Emergent: no Anesthetic plan: proceed Anesthesia type and monitoring: general GIVS and standard monitoring Results Review: All pre-operative results and documents have been reviewed as part of the pre-operative evaluation. Informed Consent: The patient's anesthetic plan and its attendant risks and benefits were discussed with the patient/family/POA. Questions were solicited and answers provided to the satisfaction of the patient/family/POA.
[2022-12-17] MEDS: LACTATED RINGERS 1,000 ML 150 ML IV CONT (10:07)
--- NOTE | 2022-12-17 10:48 | P.HP_ITS ---
History of Present Illness History of Present Illness Consent: Risks, benefits, and alternatives have been discussed and questions answered. Patient agrees to proceed with procedure. Chief complaint: hx colon polyps Narrative: Andre Godfrey is a 82 year old male Presents for colonoscopy. Patient has a prior history of adenomatous colon polyp. This was removed from the colon at time of last colonoscopy 2016. Patient reports that his current weight ap petite and bowel movements are normal. Patient denies abdominal pain. He has had no bleeding. Family history is noncontributory. Review of Systems Review of Systems: Review of systems noncontributory. [facility] Family History Family History (Updated 09/22/17 @ 15:14 by DOCTOR UNKNOWN) Sibling Family history of cardiovascular disease Other Family history of malignant neoplasm Social History Social History Smoking status: Former smoker Tobacco type: cigarettes Smoking end date: 10/06/93 Alcohol intake: current Drinks per week: 5 Alcohol use details: WINE Substance use: never Substance use type: does not use Living arrangements: alone Spiritual care concerns: No Meds Home Medications and Allergies Home Medications Medication Instructions Recorded Confirmed Type aspirin 81 mg tablet 81 mg PO DAILY 11/14/22 12/17/22 History atorvastatin 40 mg tablet 40 mg PO DAILY 11/14/22 12/17/22 History celecoxib 200 mg capsule 200 mg PO DAILY 11/14/22 12/17/22 History cyanocobalamin (vitamin B-12) 1,000 mcg IM MONTHLY 11/14/22 12/17/22 History 1,000 mcg/mL injection solution finasteride 5 mg tablet 5 mg PO DAILY 11/14/22 12/17/22 History metoprolol tartrate 25 mg tablet 25 mg PO BID 11/14/22 12/17/22 History multivit,Ca,fxne-FR-ksoolkor-lutn 2 tablet PO DAILY 11/14/22 12/17/22 History 18 mg-500 mcg-300 mcg-250 mcg tablet pantoprazole 40 mg tablet,delayed 40 mg PO DAILY 11/14/22 12/17/22 History release potassium 99 mg tablet 99 mg PO DAILY 11/14/22 12/17/22 History tamsulosin 0.4 mg capsule 0.4 mg PO DAILY 11/14/22 12/17/22 History Allergies Allergy/AdvReac Type Severity Reaction Status Date / Time No Known Allergies Allergy Verified 12/17/22 09:55 Vital Signs Vital Signs - 24 hr 12/17/22 09:58 Temperature 97.9 F Pulse Rate 64 Respiratory Rate 18 Blood Pressure 148/83 H Pulse Oximetry 100 Oxygen Delivery Room Air Exam Narrative: Physical exam reveals patient to be alert. Vital signs stable. HEENT exam is unremarkable. Patient anicteric. Lungs are clear to auscultation and percussion. Heart is without murmur or extra sounds. Abdomen bowel sounds are present soft nontender with no organomegaly. Digital external rectal exam is normal. Assessment and Plan Assessment and plan (1) History of colon polyps: Code(s): Z86.010 - Personal history of colonic polyps Status: Acute Assessment and Plan: Patient has a prior history of adenomatous colon polyp. Plan for surveillance colonoscopy at this time. Follow-up will be determined at time of endoscopy.
--- NOTE | 2022-12-17 12:02 | SUR.OPER ---
Pt. received 900 mL IVF prior to start of procedure.
[2022-12-17 12:05] VITALS: BP 161/93; PULSE 66; RESP 24; O2SAT 98
--- NOTE | 2022-12-17 12:14 | SUR.PHASEII ---
Patient had episode of vomiting - small amount of bile colored emesis. Resting after episode. No further retching noted.
[2022-12-17 12:15] VITALS: BP 185/91; PULSE 54; RESP 19; O2SAT 99
[2022-12-17 12:25] VITALS: BP 176/98; PULSE 56; RESP 18; O2SAT 100
== END 2022-12-17 12:48 | disposition home or self-care (01) ==
PROVIDERS: PCP Internal Medicine; Visit Provider Internal Medicine Gastroenterology
PROC: 0DJD8ZZ Inspection of Lower Intestinal Tract, Via Natural or Artificial Opening Endoscopic (ICD-10-PCS; CPT 45378; principal; 2022-12-17 11:00)
DX: K64.8 Other hemorrhoids (principal); Z87.891 Personal history of nicotine dependence; F10.90 Alcohol use, unspecified, uncomplicated; Z79.82 Long term (current) use of aspirin; Z86.010 Personal history of colon polyps; Z79.899 Other long term (current) drug therapy
CPT/HCPCS: 45378; J2704; J7120

== ENCOUNTER 2022-12-24 10:54 | Outpatient (CLI) | payer MEDICARE, SELFPAY ==
[2022-12-24 11:06] LABS: Basophils Absolute Auto 0.01 K/mm3 (0.00-0.10); Basophils Percent Auto 0.2 % (0.0-1.0); Eosinophils Absolute Auto 0.07 K/mm3 (0.02-0.50); Eosinophils Percent Auto 1.6 % (1.0-6.0); Hematocrit 38.2 % (37.0-46.0); Hemoglobin 13.1 g/dL (12.4-15.3); Lymphocytes Absolute Auto 0.98 K/mm3 (1.10-4.50); Lymphocytes Percent Auto 21.7 % (18.0-42.0); Mean Corpuscular HGB Conc 34.3 g/dL (32.0-36.0); Mean Corpuscular Hemoglobin 32.1 pg (27.0-31.0); Mean Corpuscular Volume 93.6 fL (78.0-102.0); Mean Platelet Volume 9.8 fl (8.7-11.0); Monocytes Absolute Auto 0.46 K/mm3 (0.10-0.90); Monocytes Percent Auto 10.2 % (2.0-11.0); Neutrophils Percent Auto 66.3 % (50.0-70.0); Platelet Count Result 155 K/mm3 (150-420); Red Blood Count 4.08 M/mm3 (4.70-6.10); Red Cell Distribution Width 12.3 % (11.6-14.4); White Blood Count 4.5 K/mm3 (4.8-10.8)
[2022-12-24 11:45] LABS: Alanine Aminotransferase 32 U/L (16-63); Albumin Level 3.9 g/dL (3.4-5.0); Alkaline Phosphatase 44 U/L (46-116); Anion Gap 5 mmol/L (8-16); Aspartate Amino Transferase 31 U/L (15-37); Bilirubin,Total 0.9 mg/dL (0.00-1.00); Blood Urea Nitrogen 17 mg/dL (7-18); Calcium 9.4 mg/dL (8.5-10.1); Carbon Dioxide 34 mmol/L (21-32); Chloride 106 mmol/L (98-108); Estimated Glomerular Filt Rate > 60; Free T3 2.62 pg/mL (2.18-3.98); Free T4 Free Thyroxine 0.85 ng/dL (0.76-1.46); Glucose 90 mg/dL (70-99); NT Pro B Type Natriuretic Pept 581 pg/mL (0-450); Osmolality Calculated 301 mOsm/kg (285-295); Potassium 5.2 mmol/L (3.5-5.1); Sodium 145 mmol/L (136-145); Thyroid Stimulating Hormone 2.59 uIU/mL (0.36-3.74)
== END 2022-12-24 10:55 | disposition home or self-care (01) ==
LOC: CHSLAB 10:57
PROVIDERS: PCP Internal Medicine; Visit Provider Internal Medicine
DX: R60.9 Edema, unspecified (principal); G62.9 Polyneuropathy, unspecified; I50.9 Heart failure, unspecified
CPT/HCPCS: 36415; 80053; 83880; 84439; 84443; 84481; 85025

== ENCOUNTER 2022-12-27 12:04 | Outpatient (CLI) | payer MEDICARE, OTHER, SELFPAY ==
--- NOTE | 2022-12-27 01:00 | ECHO_ITS ---
Patient Info Name: Andre Godfrey Age: 82 years : 1940 Gender: Male Ht: 69 in Wt: 212 lbs BSA: 2.19 m2 HR: 56 bpm BP: 149 / 75 mmHg Heart Rhythm: Sinus Rhythm Technical Quality: Fair Exam Date: 12/27/2022 12:02 PM Exam Location: [facility], [place] Patient Status: Outpatient Admit Date: 12/27/2022 Staff Ordering Physician: Michael Addison MD Residential Energy Auditor: Liliam John RDCS Attending Provider: Michael Addison MD Referring Physician: Azael PHAN; Exam Type: CA echo doppler color flow Study Info Indications - chf Complete two-dimensional, color flow and Doppler transthoracic echocardiogram is performed. History/Risk Factors Hypertension: No Dyslipidemia: No Congenital Heart Disease (CHD): No Peripheral Arterial Disease (PAD): No Myocardial Infarction (AL): No Chronic Lung Disease: No Obesity: No Renal Disease: No Coronary Artery Disease (CAD) Yes Congestive Heart Failure (CHF): No Cardiomyopathy/LV Systolic Dysfunction: No Diabetes Mellitus: No COPD: No Tobacco Use: Former Cerebrovascular Disease: No Deep Vein Thrombosis (DVT): None Dialysis: None Frailty Scale (CSHA): 2: Well Cardiac Arrest: No Prior Interventions Pacemaker: No PCI: No CABG: No Valve Surgery: No ICD: No PV Intervention: None Heart Transplant: No Summary 1. Complete two-dimensional, color flow and Doppler transthoracic echocardiogram is performed. 2. Left ventricular chamber dimension is normal. 3. Left ventricular systolic function is normal, estimated at 60-65%. 4. There is mild concentric increased left ventricular wall thickness. 5. The left ventricular diastolic function is grade I diastolic dysfunction. 6. E/e' 10 is mildly elevated. 7. Left atrial chamber dimension is mildly enlarged. 8. There is mild aortic valve sclerosis. 9. There is mild aortic valve regurgitation. 10. There is mild mitral valve regurgitation. 11. There is mild to moderate tricuspid valve regurgitation. 12. No pulmonary hypertension, estimated pulmonary arterial systolic pressure is 30 mmHg. 13. There is trace pulmonic regurgitation. 14. The prox ascending aorta size is borderline dilated at 4.0 cm. Left Ventricle E/e' 10 is mildly elevated. Left ventricular chamber dimension is normal. Left ventricular systolic function is normal, estimated at 60-65%. There is mild concentric increased left ventricular wall thickness. The left ventricular diastolic function is grade I diastolic dysfunction. Right Ventricle Right ventricular systolic function is normal and with normal TAPSE 2.4 cm. Right ventricular chamber dimension is normal. Left Atria Left atrial chamber dimension is mildly enlarged. Right Atria Right atrial chamber dimension is normal. Aortic Valve The aortic valve is trileaflet. There is mild aortic valve sclerosis. There is no aortic valve stenosis. There is mild aortic valve regurgitation. Pulmonic Valve There is trace pulmonic regurgitation. Mitral Valve There is no mitral valve stenosis. There is mild mitral valve regurgitation. Tricuspid Valve There is mild to moderate tricuspid valve regurgitation. No pulmonary hypertension, estimated pulmonary arterial systolic pressure is 30 mmHg. Pericardium/Pleural There is no pericardial effusion. Inferior Vena Cava Normal inferior vena cava with >50% collapse upon inspira
== END 2022-12-27 12:05 | disposition home or self-care (01) ==
PROVIDERS: PCP Internal Medicine; Visit Provider Internal Medicine
DX: I50.9 Heart failure, unspecified (principal); I08.3 Combined rheumatic disorders of mitral, aortic and tricuspid valves
CPT/HCPCS: 93306

== ENCOUNTER 2023-01-21 11:14 | Outpatient (CLI) | payer MEDICARE, SELFPAY ==
[2023-01-21 11:35] LABS: Basophils Absolute Auto 0.02 K/mm3 (0.00-0.10); Basophils Percent Auto 0.4 % (0.0-1.0); Eosinophils Absolute Auto 0.06 K/mm3 (0.02-0.50); Eosinophils Percent Auto 1.3 % (1.0-6.0); Hematocrit 39.5 % (37.0-46.0); Hemoglobin 13.2 g/dL (12.4-15.3); Immature Granulocyte Absolute 0.01 K/mm3 (0.00-0.00); Immature Granulocyte Percent A 0.2 % (0.0-0.0); Lymphocytes Absolute Auto 1.03 K/mm3 (1.10-4.50); Lymphocytes Percent Auto 21.7 % (18.0-42.0); Mean Corpuscular HGB Conc 33.4 g/dL (32.0-36.0); Mean Corpuscular Hemoglobin 31.4 pg (27.0-31.0); Mean Platelet Volume 9.8 fl (8.7-11.0); Monocytes Absolute Auto 0.51 K/mm3 (0.10-0.90); Monocytes Percent Auto 10.8 % (2.0-11.0); Neutrophils Absolute Auto 3.1 K/mm3 (1.7-7.2); Neutrophils Percent Auto 65.6 % (50.0-70.0); Platelet Count Result 164 K/mm3 (150-420); Red Cell Distribution Width 12.2 % (11.6-14.4); White Blood Count 4.7 K/mm3 (4.8-10.8)
[2023-01-21 12:15] LABS: Anion Gap 5 mmol/L (8-16); Blood Urea Nitrogen 28 mg/dL (7-18); Calcium 9.3 mg/dL (8.5-10.1); Carbon Dioxide 33 mmol/L (21-32); Chloride 104 mmol/L (98-108); Estimated Glomerular Filt Rate > 60; Glucose 101 mg/dL (70-99); NT Pro B Type Natriuretic Pept 445 pg/mL (0-450); Osmolality Calculated 299 mOsm/kg (285-295); Sodium 142 mmol/L (136-145); Vitamin B12 1254 pg/mL (193-986)
== END 2023-01-21 11:15 | disposition home or self-care (01) ==
LOC: CHSLAB 11:16
PROVIDERS: PCP Internal Medicine; Visit Provider Internal Medicine
DX: I50.9 Heart failure, unspecified (principal); E53.8 Deficiency of other specified B group vitamins
CPT/HCPCS: 36415; 80048; 82607; 83880; 85025

== ENCOUNTER 2023-03-08 09:25 | Outpatient (CLI) | payer MEDICARE, OTHER, SELFPAY ==
--- NOTE | ~2023-03-08 | MR_ITS ---
MRI of the brain Clinical History: CVA Technique: Axial and sagittal T1-weighted images were acquired. These were followed by axial T2-weigh keyonna, diffusion weighted, gradient, and FLAIR images. Following intravenous administration of 20 cc Mu ltiHance gadolinium, T1-weighted fat-sat imaging was performed in the axial and coronal planes. Findings: There is no acute infarct, intracranial hemorrhage, or mass lesion. There are mild to moder ate chronic white matter changes in the periventricular white matter bilaterally. Ventricles and subarachnoid spaces are unremarkable. Orbits are unremarkable. Paranasal sinuses and m astoid air cells are clear. Distal right vertebral flow void not well visualized. Remaining major int racranial flow voids appear intact. Sagittal midline structures are intact. IMPRESSION: No acute infarct, intracranial hemorrhage or mass lesion. Mild to moderate chronic microvascular ischemic changes. Poor visualization of distal right vertebral artery flow-void. This could reflect hypoplastic right v ertebral artery, or possibly proximal occlusion. Reviewed, dictated and finalized at location M. IMPRESSION: No acute infarct, intracranial hemorrhage or mass lesion. Mild to moderate chronic microvascular ischemic changes. Poor visualization of distal right vertebral artery flow-void. This could refle ct hypoplastic right vertebral artery, or possibly proximal occlusion.
== END 2023-03-08 09:26 | disposition home or self-care (01) ==
LOC: CHSIMG 09:28
PROVIDERS: PCP Internal Medicine; Visit Provider Internal Medicine
DX: I63.9 Cerebral infarction, unspecified (principal)
CPT/HCPCS: 70553; A9577

== ENCOUNTER 2023-03-12 09:17 | Outpatient (CLI) | payer MEDICARE, OTHER, SELFPAY ==
--- NOTE | 2023-04-01 11:44 | WPDHOLTEREM ---
Holter/Event Monitor Holter/Event Monitor Date of procedure: 03/12/23 Holter/Event Procedure: Event Monitor Indications: Stroke Conclusion: 1. Event monitor between 03/12/23-04/01/23. This is a triggered only event monitor. There are 11 available transmissions for analysis. 2. Predominant rhythm is sinus rhythm. HR range 55-76 bpm. 3. There are intermittent premature supraventricular complexes. Two episodes of atrial fibrillation at 102 bpm on 03/27/23 at 06:44, and at 116 bpm on 03/27/23 at 08:22. 4. There is 1 PVC. No ventricular tachycardia. 5. No significant pauses greater than 2 seconds. 6. No symptoms available for correlation.
== END 2023-03-12 09:18 | disposition home or self-care (01) ==
LOC: CHSCARD 09:20
PROVIDERS: PCP Internal Medicine; Visit Provider Internal Medicine
DX: I63.9 Cerebral infarction, unspecified (principal)
CPT/HCPCS: 93270

== ENCOUNTER 2023-03-17 07:35 | Outpatient (CLI) | payer MEDICARE, OTHER, SELFPAY ==
--- NOTE | ~2023-03-17 | US_ITS ---
EXAMINATION: US carotid duplex BI DATE: 03/17/2023 08:06 INDICATION: Loss of control of the right hand. TECHNIQUE: Grayscale, color Doppler, and pulsed Doppler images of the cervical carotid arteries were obtained. The degree of vessel stenosis is placed in one of the following categories: normal, <50%, 5 0-69%, >=70% but less than near-occlusion, near-occlusion, or total occlusion. Note that percent sten osis relative to normal distal artery lumen diameter is indirectly measured from velocity measurement s as described by Chauncey, et al. Radiology 2003; 229:340-346. Notes: Normal: Peak systolic velocity <125 centimeters/sec and no plaque <50%. Peak systolic velocity <125 ( EDV <40; ICA/CCA PSV ratio <2.0; used these factors only a tandem lesions or low cardiac output or co ntralateral disease) 50-69 %: PSV 125-230 (EDV 40-100; ratio 2-4) >= 70% but less than near occlusion: PSV greater than 230 (EDV > 100; ratio> 4.0) Near Occlusion: PSV that is variable; markedly narrowed lumen Occlusion: Absent flow on color/spectral Doppler and no lumen on alarcon scale. COMPARISON: None. FINDINGS: RIGHT: The right common carotid artery (CCA) peak systolic velocity (PSV) is 83 cm/s. The right internal car otid artery (ICA) PSV is 65 cm/s. The right ICA end-diastolic velocity (EDV) is 21 cm/s. The right IC A/CCA PSV ratio is 0.78. The external carotid artery (ECA) PSV is 61 cm/s. There is antegrade flow in the right vertebral artery. LEFT: The left CCA PSV is 77 cm/s. The left ICA PSV is 81 cm/s. The left ICA EDV is 30 cm/s. The left ICA/C CA PSV ratio is 1.0. The ECA PSV is 47 cm/s. There is antegrade flow in the left vertebral artery. IMPRESSION: 1. Less than 50% stenosis in the right internal carotid artery by sonographic criteria. 2. Less than 50% stenosis in the left internal carotid artery by sonographic criteria. Reviewed, dictated and finalized at location [] IMPRESSION: 1. Less than 50% stenosis in the right internal carotid artery by sonographic c riteria. 2. Less than 50% stenosis in the left internal carotid artery by sonographic cr iteria.
== END 2023-03-17 07:36 | disposition home or self-care (01) ==
LOC: CHSIMG 07:37
PROVIDERS: PCP Internal Medicine; Visit Provider Internal Medicine
DX: I65.23 Occlusion and stenosis of bilateral carotid arteries (principal)
CPT/HCPCS: 93880

== ENCOUNTER 2023-07-17 09:33 | Outpatient (CLI) | payer MEDICARE, SELFPAY ==
[2023-07-17 09:54] LABS: Immature Reticulocyte Fraction 7.8 % (2.0-16.52); Reticulocyte Hemoglobin Conten 36.4 pg (28.0-35.0); Reticulocyte Percent 1.36 % (0.50-1.50); Reticulocytes Absolute 0.05 M/mm3 (0.02-0.1)
[2023-07-17 10:47] LABS: Ferritin 96 ng/mL (26-388); Iron 136 ug/dL (65-175)
== END 2023-07-17 09:34 | disposition home or self-care (01) ==
LOC: CHSLAB 09:35
PROVIDERS: PCP Internal Medicine; Visit Provider Internal Medicine
DX: D64.9 Anemia, unspecified (principal)
CPT/HCPCS: 36415; 82728; 83540; 85046

== ENCOUNTER 2023-08-14 09:54 | Outpatient (CLI) | payer MEDICARE, SELFPAY ==
[2023-08-14 10:07] LABS: Basophils Absolute Auto 0.02 K/mm3 (0.00-0.10); Basophils Percent Auto 0.5 % (0.0-1.0); Eosinophils Absolute Auto 0.13 K/mm3 (0.02-0.50); Eosinophils Percent Auto 3.3 % (1.0-6.0); Hemoglobin 12.6 g/dL (12.4-15.3); Immature Granulocyte Absolute 0.01 K/mm3 (0.00-0.00); Immature Granulocyte Percent A 0.3 % (0.0-0.0); Lymphocytes Absolute Auto 1.23 K/mm3 (1.10-4.50); Lymphocytes Percent Auto 30.8 % (18.0-42.0); Mean Corpuscular HGB Conc 34.1 g/dL (32.0-36.0); Mean Corpuscular Hemoglobin 32.3 pg (27.0-31.0); Mean Corpuscular Volume 94.9 fL (78.0-102.0); Mean Platelet Volume 9.5 fl (8.7-11.0); Monocytes Absolute Auto 0.29 K/mm3 (0.10-0.90); Monocytes Percent Auto 7.3 % (2.0-11.0); Neutrophils Absolute Auto 2.3 K/mm3 (1.7-7.2); Neutrophils Percent Auto 57.8 % (50.0-70.0); Platelet Count Result 169 K/mm3 (150-420); Red Cell Distribution Width 12.3 % (11.6-14.4)
== END 2023-08-14 09:55 | disposition home or self-care (01) ==
LOC: CHSLAB 09:56
PROVIDERS: PCP Internal Medicine; Visit Provider Internal Medicine
DX: D64.9 Anemia, unspecified (principal)
CPT/HCPCS: 36415; 85025

== ENCOUNTER 2023-10-02 01:16 | Day surgery (SDC) | payer MEDICARE, OTHER, SELFPAY ==
[2023-09-25 09:59] VITALS: BMI 31.4
--- NOTE | 2023-09-25 10:52 | PC.NURSE ---
Spoke with __PATIENT___ regarding medication _XARELTO . Pt. verbalizes understanding that the last dose of __XARELTO____ is to be taken on ___09/29/2023___ and the Endoscopist will instruct them when to restart after the procedure.
--- NOTE | 2023-09-30 12:23 | SUR.PREOP ---
Patient called regarding upcoming procedure. Reviewed preop instructions, appointment times, and procedure prep.
[2023-10-02 11:26] VITALS: BP 137/67; PULSE 58; RESP 18; TEMP 36.4; O2SAT 100
--- NOTE | 2023-10-02 11:28 | PM.HPGS ---
History of Present Illness History of Present Illness Consent: Risks, benefits, and alternatives have been discussed and questions answered. Patient agrees to proceed with procedure. Chief complaint: occult blood in stool Narrative: Andre Godfrey is a 83 year old male Returns for colonoscopy and also EGD. Patient recently found to have occult blood in stool. Patient has a history of atrial fibrillation for which she is on Xarelto anticoagulation. Recent CBC with a hemoglobin 12 medical rate 37 normal iron studies. Patient referred for colonoscopy and EGD under the direction of primary care service.. Patient denies abdominal pain. Colonoscopy performed in December of this year revealed internal hemorrhoids no other significant pathology at that time. Patient reports no significant change in the interim. He denies any obvious blood in his stools. He denies abdominal pain. His weight has remained stable. His appetite is good. Patient does have a history of a polyp in the colon at the time of colonoscopy 2016. Review of Systems Review of Systems: Review of systems noncontributory. Patient does note occasional bruising from his Xarelto on his skin. [facility] Family History Family History (Updated 09/22/17 @ 15:14 by DOCTOR UNKNOWN) Sibling Family history of cardiovascular disease Other Family history of malignant neoplasm Social History Social History Smoking status: Former smoker Tobacco type: cigarettes Smoking end date: 10/06/93 Alcohol intake: current Drinks per week: 7 Alcohol use details: GLASSES WINE- OCC. BEER Substance use: never Substance use type: does not use Living arrangements: with family Spiritual care concerns: No Meds Home Medications and Allergies Home Medications Medication Instructions Recorded Confirmed Type aspirin 81 mg tablet 81 mg PO DAILY 11/14/22 10/02/23 History atorvastatin 40 mg tablet 20 mg PO DAILY 11/14/22 10/02/23 History finasteride 5 mg tablet 5 mg PO DAILY 11/14/22 10/02/23 History metoprolol tartrate 25 mg tablet 25 mg PO BID 11/14/22 10/02/23 History multivit,Ca,rwvw-QB-fbbqkeak-lutn 1 tablet PO DAILY 11/14/22 10/02/23 History 18 mg-500 mcg-300 mcg-250 mcg tablet pantoprazole 40 mg tablet,delayed 40 mg PO BID 11/14/22 10/02/23 History release potassium 99 mg tablet 99 mg PO DAILY 11/14/22 10/02/23 History tamsulosin 0.4 mg capsule 0.4 mg PO DAILY 11/14/22 10/02/23 History cyanocobalamin (vitamin B-12) 1,000 mcg sublingual DAILY 09/25/23 10/02/23 History 1,000 mcg sublingual lozenge docusate sodium 100 mg capsule 100 mg PO DAILY PRN Constipation 09/25/23 10/02/23 History (Stool Softener) furosemide 20 mg tablet 20 mg PO DAILY 09/25/23 10/02/23 History rivaroxaban 20 mg tablet (Xarelto) 20 mg PO QPM 09/25/23 10/02/23 History Allergies Allergy/AdvReac Type Severity Reaction Status Date / Time No Known Allergies Allergy Verified 10/02/23 11:04 Exam Narrative: Physical exam reveals patient to be alert. Vital signs stable. HEENT exam is unremarkable. Patient is anicteric. Lungs are clear to auscultation and percussion. Heart is without murmur or extra sounds. Abdomen bowel sounds are present soft nontender with no organomegaly. Digital external rectal exam normal. Assessment and Plan Assessment and plan (1) Occult blood in stools: Code(s): R19.5 - Other fecal abnormalities Status: Acute
[2023-10-02] MEDS: LACTATED RINGERS 1,000 ML 150 ML IV CONT (11:39)
--- NOTE | 2023-10-02 11:51 | P.PNAN_ITS ---
Anes - Initial Pre Proc Eval Procedure: Operation Date: 10/02/23 12:30 Proposed Procedures p Esophagogastroduodenoscopy & Colonoscopy - Gómez Winn MD Date/Time: 10/02/23 11:51 Surgeon: Gómez Winn MD Pre Op Diagnosis: occult blood in stool Patient Data Age: 83 Gender: M Height: 1.74 m Weight: 95.5 kg Last Vital Signs Temp 97.6 F 10/02/23 11:26 Pulse 58 L 10/02/23 11:26 Resp 18 10/02/23 11:26 BP 137/67 10/02/23 11:26 Pulse Ox 100 10/02/23 11:26 O2 Del Method Room Air 10/02/23 11:26 Allergies Allergy/AdvReac Type Severity Reaction Status Date / Time No Known Allergies Allergy Verified 10/02/23 11:04 Home Medications Medication Instructions Recorded Confirmed Type aspirin 81 mg tablet 81 mg PO DAILY 11/14/22 10/02/23 History atorvastatin 40 mg tablet 20 mg PO DAILY 11/14/22 10/02/23 History finasteride 5 mg tablet 5 mg PO DAILY 11/14/22 10/02/23 History metoprolol tartrate 25 mg tablet 25 mg PO BID 11/14/22 10/02/23 History multivit,Ca,valq-AZ-bosaycck-lutn 1 tablet PO DAILY 11/14/22 10/02/23 History 18 mg-500 mcg-300 mcg-250 mcg tablet pantoprazole 40 mg tablet,delayed 40 mg PO BID 11/14/22 10/02/23 History release potassium 99 mg tablet 99 mg PO DAILY 11/14/22 10/02/23 History tamsulosin 0.4 mg capsule 0.4 mg PO DAILY 11/14/22 10/02/23 History cyanocobalamin (vitamin B-12) 1,000 mcg sublingual DAILY 09/25/23 10/02/23 History 1,000 mcg sublingual lozenge docusate sodium 100 mg capsule 100 mg PO DAILY PRN Constipation 09/25/23 10/02/23 History (Stool Softener) furosemide 20 mg tablet 20 mg PO DAILY 09/25/23 10/02/23 History rivaroxaban 20 mg tablet (Xarelto) 20 mg PO QPM 09/25/23 10/02/23 History Patient hx anesthesia problems: none Family hx anesthesia problems: none Results Review: All pre-operative results and documents have been reviewed as part of the pre- operative evaluation. [facility] Family History Family History (Updated 09/22/17 @ 15:14 by DOCTOR UNKNOWN) Sibling Family history of cardiovascular disease Other Family history of malignant neoplasm Social History Social History Smoking status: Former smoker Tobacco type: cigarettes Smoking end date: 10/06/93 Alcohol intake: current Drinks per week: 7 Alcohol use details: GLASSES WINE- OCC. BEER Substance use: never Substance use type: does not use Living arrangements: with family Spiritual care concerns: No Anes - Eval Final PreProcedure Day of Procedure 10/02/23 11:51 Patient weight: obese Heart: regular rate and rhythm Lungs: clear to auscultation Airway: Mallampati scale class II Neurological: alert and oriented Last oral intake: >/= 8 hours ASA classification: III Emergent: no Anesthetic plan: proceed Anesthesia type and monitoring: general GIVS and standard monitoring Results Review: All pre-operative results and documents have been reviewed as part of the pre- operative evaluation. Informed Consent: The patient's anesthetic plan and its attendant risks and benefits were disc ussed with the patient/family/POA. Questions were solicited and answers provided to the satisfaction of the patient/family/POA.
--- NOTE | 2023-10-02 12:14 | SUR.OPER ---
EGD end 1212 COLONOSCOPY START 1218
[2023-10-02 12:47] VITALS: BP 148/82; PULSE 57; RESP 22; O2SAT 97
[2023-10-02 12:57] VITALS: BP 157/80; PULSE 58; RESP 20; O2SAT 97
[2023-10-02 13:07] VITALS: BP 131/73; PULSE 60; RESP 20; O2SAT 96
== END 2023-10-02 13:25 | disposition home or self-care (01) ==
PROVIDERS: PCP Internal Medicine; Visit Provider Internal Medicine Gastroenterology
PROC: 0DJ08ZZ Inspection of Upper Intestinal Tract, Via Natural or Artificial Opening Endoscopic (ICD-10-PCS; CPT 43235; principal; 2023-10-02 12:30)
DX: R19.5 Other fecal abnormalities (principal); D12.2 Benign neoplasm of ascending colon; K64.8 Other hemorrhoids; I48.91 Unspecified atrial fibrillation; Z79.01 Long term (current) use of anticoagulants; Z87.891 Personal history of nicotine dependence
CPT/HCPCS: 45380; 43235; 88305; J2704; J7120

== ENCOUNTER 2023-11-04 06:52 | Emergency (ER) | payer MEDICARE, OTHER, SELFPAY ==
[2023-11-04] VITALS (7 sets, daily range): BP systolic 126–137; BP diastolic 77–80; PULSE 56–60; RESP 11–15; TEMP 36.6; O2SAT 95–98
--- NOTE | ~2023-11-04 | XR_ITS ---
Clinical Indication: Numbness PA and lateral views of the chest: Comparison: 06/23/2020 Findings: The lungs are clear, without evidence of focal consolidation or pleural effusion. Cardiome diastinal silhouette is within normal limits. Bones and soft tissues are unremarkable. Impression: Normal chest. Reviewed, dictated and finalized at location . [employer] INTERN Impression: Normal chest.
--- NOTE | ~2023-11-04 | CT_ITS ---
Non-contrast Head CT History: Numbness Technique: Axial non-contrast imaging of the brain was performed. Dose reduction technique was used on this scan by utilizing automated exposure control and iterative reconstruction technique. The dose -length product (DLP) was 681.00 mGy-cm. Findings: There is no evidence of intracranial hemorrhage, mass lesion, or acute infarct. Brain par enchyma appears normal. The ventricles and subarachnoid spaces are normal in size. The calvarium ap pears normal. The visualized paranasal sinuses and mastoid air cells are clear. Impression: No significant abnormality seen. Reviewed, dictated and finalized at location . ADVICE Impression: No significant abnormality seen.
--- NOTE | 2023-11-04 07:01 | ECG_ITS ---
Measurements Intervals [place] Rate: 60 P: 79 [place]: 244 QRS: 19 QRSD: 82 T: 50 QT: 412 QTc: 412 Interpretive Statements SINUS RHYTHM WITH FIRST DEGREE AV BLOCK ATRIAL PREMATURE COMPLEX LOW QRS VOLTAGE IN LIMB LEADS BASELINE ARTIFACT- I, II, III, AVR, AVL, V1 BORDERLINE ECG COMPARED TO ECG 06/23/2020 09:30:27 SINUS RHYTHM NOW PRESENT Electronically Signed On 11-04-2023 8:51:20 [employer] by Ced Whitten D.O.
--- NOTE | 2023-11-04 07:05 | ED.EXTPRO ---
HPI - Extremity Problem General Chief complaint: Extremity Problem,Nontraumatic Stated complaint: chest pain Time Seen by Provider: 11/04/23 07:00 Source: patient Mode of arrival: ambulatory Limitations: no limitations History of Present Illness HPI Narrative: patient is an 83-year-old male with a left hand motor dysfunction this morning for 1 minute. He had inability to control his left hand. That resolved after 1 minute. He also had an associated pain on the left forearm. All symptoms have resolved at this time. Prior TIA. No CVA. He is on Xarelto and aspirin. He is on a statin. MD Complaint: extremity pain ( Left forearm) Onset (ago): minute(s) (1) Pain Consistency: now resolved Location: left Severity scale (1-10): 4 Quality: aching Radiation: none Relieving factors: nothing Exacerbating factors: nothing Associated symptoms: denies other symptoms Related Data Home Medications Medication Instructions Recorded Confirmed aspirin 81 mg tablet 81 mg PO DAILY 11/14/22 11/04/23 atorvastatin 40 mg tablet (Lipitor) 20 mg PO DAILY 11/14/22 11/04/23 finasteride 5 mg tablet (Proscar) 5 mg PO DAILY 11/14/22 11/04/23 metoprolol tartrate 25 mg tablet 25 mg PO BID 11/14/22 11/04/23 multivit,Ca,pccm-MY-arvzqpww-lutn 1 tablet PO DAILY 11/14/22 11/04/23 18 mg-500 mcg-300 mcg-250 mcg tablet (A Thru Z) pantoprazole 40 mg tablet,delayed 40 mg PO BID 11/14/22 11/04/23 release (Protonix) potassium 99 mg tablet 99 mg PO DAILY 11/14/22 11/04/23 tamsulosin 0.4 mg capsule (Flomax) 0.4 mg PO DAILY 11/14/22 11/04/23 cyanocobalamin (vitamin B-12) 1,000 mcg sublingual EVERY OTHER 09/25/23 11/04/23 1,000 mcg sublingual lozenge DAY rivaroxaban 20 mg tablet (Xarelto) 20 mg PO QPM 09/25/23 11/04/23 Allergies Allergy/AdvReac Type Severity Reaction Status Date / Time No Known Allergies Allergy Verified 11/04/23 07:04 Review of Systems Review of Systems: All systems reviewed & are unremarkable except as noted in HPI and below Constitutional: Constitutional: Reports no additional constitutional complaints Eyes: Eyes: Reports no additional eye complaints ENT: Reports system reviewed and no additional complaints, except as documented Cardiovascular: Cardiovascular: Reports no additional cardiovascular complaints Respiratory: Respiratory: Reports no additional respiratory complaints Gastrointestinal: Gastrointestinal: Reports no additional gastrointestinal complaints Genitourinary: Genitourinary: Reports no additional male genitourinary complaints Musculoskeletal: Musculoskeletal: Reports no additional musculoskeletal complaints Integumentary/Breasts: Skin/Breast: Reports system reviewed and no additional complaints, except as docu Neurologic: Reports system reviewed and no additional complaints, except as documented Psychiatric: Psychiatric: Reports no additional psychiatric complaints Endocrine: Endocrine: Reports no additional endocrine complaints Hematologic/Lymphatic: Hematologic/Lymphatic: Reports no additional hematologic/lymphatic complaints Allergic/Immunologic: Allergic/Immunologic: Reports no additional allergic/immunologic complaints PMFSH Family History Family History Sibling Family history of cardiovascular disease Other Family history of malignant neoplasm Social History Social History Smoking status: Former smoker Tobacco type: cigarettes Smoking end date: 10/06/93 Alcohol intake: current Drinks per week: 7 Alcohol use details: GLASSES WINE- OCC. BEER Substance use: never Substance use type: does not use Living arrangements: with family Spiritual care concerns: No Exam Const: General: healthy appearing Nutritional Appearance: well nourished Orientation/consciousness: patient oriented x3 HENMT: Head: normal to inspection Ears: external ears normal Face/No
[2023-11-04 07:35] LABS: Basophils Absolute Auto 0.01 K/mm3 (0.00-0.10); Basophils Percent Auto 0.2 % (0.0-1.0); Eosinophils Absolute Auto 0.06 K/mm3 (0.02-0.50); Eosinophils Percent Auto 1.4 % (1.0-6.0); Hematocrit 36.6 % (37.0-46.0); Hemoglobin 11.7 g/dL (12.4-15.3); Immature Granulocyte Absolute 0.01 K/mm3 (0.00-0.00); Immature Granulocyte Percent A 0.2 % (0.0-0.0); Lymphocytes Absolute Auto 0.93 K/mm3 (1.10-4.50); Lymphocytes Percent Auto 21.5 % (18.0-42.0); Mean Corpuscular Hemoglobin 30.5 pg (27.0-31.0); Mean Corpuscular Volume 95.3 fL (78.0-102.0); Mean Platelet Volume 9.5 fl (8.7-11.0); Monocytes Absolute Auto 0.43 K/mm3 (0.10-0.90); Monocytes Percent Auto 9.9 % (2.0-11.0); Neutrophils Absolute Auto 2.9 K/mm3 (1.7-7.2); Neutrophils Percent Auto 66.8 % (50.0-70.0); Platelet Count Result 137 K/mm3 (150-420); Red Blood Count 3.84 M/mm3 (4.70-6.10); Red Cell Distribution Width 12.5 % (11.6-14.4); White Blood Count 4.3 K/mm3 (4.8-10.8)
[2023-11-04 07:50] LABS: INR 1.4; Partial Thromboplastin Time 35.1 SEC (23.90-30.70); Prothrombin Time 15.1 Seconds (9.50-12.10)
[2023-11-04 08:04] LABS: Alanine Aminotransferase 21 U/L (16-63); Albumin Level 3.3 g/dL (3.4-5.0); Alkaline Phosphatase 38 U/L (46-116); Anion Gap 8 mmol/L (8-16); Aspartate Amino Transferase 27 U/L (15-37); Bilirubin,Total 1.1 mg/dL (0.00-1.00); Blood Urea Nitrogen 23 mg/dL (7-18); Calcium 8.5 mg/dL (8.5-10.1); Carbon Dioxide 28 mmol/L (21-32); Chloride 105 mmol/L (98-108); Estimated CRCL calculation 47 ml/min; Estimated Glomerular Filt Rate 57; Glucose 106 mg/dL (70-99); Osmolality Calculated 295 mOsm/kg (285-295); Sodium 141 mmol/L (136-145); Thyroid Stimulating Hormone 3.34 uIU/mL (0.36-3.74); Total Protein 6.5 g/dL (6.4-8.2); Troponin I 9.4 ng/L (0.00-60.4)
[2023-11-04 08:16] LABS: Appearance Urine Clear (Clear); Bilirubin Urine Negative (Negative); Blood Urine Negative (Negative); Color Urine Light Yellow (Yellow); Glucose Urine UA Negative (Negative); Ketones Urine Negative (Negative); Leukocyte Esterase Ur Negative LEU/UL (Negative); Nitrate Urine Negative (Negative); Protein Urine Negative (Negative); Urobilinogen Urine 0.2 mg/dL (0.2-1.0)
[2023-11-04 08:29] LABS: Add Urine Microscopic? NO
--- NOTE | 2023-11-04 08:45 | PC.NURSE ---
PT REPORTED HE WAS ASYMPTOMATIC THROUGHOUT VISIT. NAD NOTED.
== END 2023-11-04 08:40 | disposition home or self-care (01) ==
PROVIDERS: Emergency Provider Emergency Medicine; PCP Internal Medicine
DX: G45.9 Transient cerebral ischemic attack, unspecified (principal); Z79.01 Long term (current) use of anticoagulants; Z79.82 Long term (current) use of aspirin; Z79.899 Other long term (current) drug therapy; Z87.891 Personal history of nicotine dependence
CPT/HCPCS: 36415; 70450; 71046; 80053; 81003; 84443; 84484; 85025; 85610; 85730; 93005; 99284

== ENCOUNTER 2024-04-09 10:12 | Outpatient (CLI) | payer MEDICARE, SELFPAY ==
[2024-04-09 12:06] LABS: Creatine Kinase 237 U/L (39-308)
== END 2024-04-09 10:13 | disposition home or self-care (01) ==
LOC: CHSLAB 10:14
PROVIDERS: PCP Internal Medicine; Visit Provider Internal Medicine
DX: M60.9 Myositis, unspecified (principal)
CPT/HCPCS: 36415; 82550

== ENCOUNTER 2024-05-21 14:17 | Outpatient (CLI) | payer MEDICARE, SELFPAY ==
[2024-05-21 14:39] LABS: Hematocrit 36.6 % (37.0-46.0); Hemoglobin 12.3 g/dL (12.4-15.3); Mean Corpuscular HGB Conc 33.6 g/dL (32-36); Mean Corpuscular Hemoglobin 30.7 pg (27.0-31.0); Mean Corpuscular Volume 91.3 fL (78.0-102.0); Mean Platelet Volume 9.5 fl (8.7-11.0); Platelet Count Result 182 K/mm3 (150-420); Red Blood Count 4.01 M/mm3 (4.70-6.10); Red Cell Distribution Width 12.6 % (11.6-14.4); White Blood Count 4.8 K/mm3 (4.8-10.8)
[2024-05-21 15:15] LABS: Alanine Aminotransferase 25 U/L (16-63); Alkaline Phosphatase 54 U/L (46-116); Anion Gap 5 mmol/L (4-12); Aspartate Amino Transferase 29 U/L (15-37); Bilirubin,Total 0.8 mg/dL (0.00-1.00); Blood Urea Nitrogen 18 mg/dL (7-18); Calcium 8.9 mg/dL (8.5-10.1); Carbon Dioxide 32 mmol/L (21-32); Chloride 103 mmol/L (98-108); Estimated Glomerular Filt Rate > 60; Free T3 2.63 pg/mL (2.18-3.98); Glucose 98 mg/dL (70-99); Magnesium 2.1 mg/dL (1.8-2.4); Osmolality Calculated 291 mOsm/kg (285-295); Potassium 4.2 mmol/L (3.5-5.1); Sodium 140 mmol/L (136-145); Thyroid Stimulating Hormone 2.99 uIU/mL (0.36-3.74); Total Protein 7.1 g/dL (6.4-8.2)
== END 2024-05-21 14:18 | disposition home or self-care (01) ==
LOC: CHSLAB 14:19
PROVIDERS: PCP Internal Medicine; Visit Provider Internal Medicine
DX: R19.8 Other specified symptoms and signs involving the digestive system and abdomen (principal); I48.0 Paroxysmal atrial fibrillation; D64.9 Anemia, unspecified
CPT/HCPCS: 36415; 80053; 83735; 84439; 84443; 84481; 85027

== ENCOUNTER 2024-07-23 14:46 | Outpatient (CLI) | payer MEDICARE, SELFPAY ==
[2024-07-23 15:33] LABS: Basophils Absolute Auto 0.02 K/mm3 (0.00-0.10); Basophils Percent Auto 0.4 % (0.0-1.0); Eosinophils Absolute Auto 0.09 K/mm3 (0.02-0.50); Eosinophils Percent Auto 1.9 % (1.0-6.0); Hematocrit 35.7 % (37.0-46.0); Immature Granulocyte Absolute 0.01 K/mm3 (0.00-0.00); Immature Granulocyte Percent A 0.2 % (0.0-0.0); Lymphocytes Absolute Auto 1.04 K/mm3 (1.10-4.50); Lymphocytes Percent Auto 22.1 % (18.0-42.0); Mean Corpuscular HGB Conc 33.6 g/dL (32-36); Mean Corpuscular Hemoglobin 30.2 pg (27.0-31.0); Mean Corpuscular Volume 89.7 fL (78.0-102.0); Mean Platelet Volume 9.8 fl (8.7-11.0); Monocytes Absolute Auto 0.47 K/mm3 (0.10-0.90); Neutrophils Absolute Auto 3.07 K/mm3 (1.70-7.20); Neutrophils Percent Auto 65.4 % (50.0-70.0); Platelet Count Result 186 K/mm3 (150-420); Red Blood Count 3.98 M/mm3 (4.70-6.10); Red Cell Distribution Width 12.6 % (11.6-14.4); White Blood Count 4.7 K/mm3 (4.8-10.8)
[2024-07-23 15:34] LABS: Add Urine Microscopic? NO; Appearance Urine Clear (Clear); Bilirubin Urine Negative (Negative); Blood Urine Negative (Negative); Color Urine Light Yellow (Yellow); Glucose Urine UA Negative (Negative); Ketones Urine Negative (Negative); Leukocyte Esterase Ur Negative LEU/UL (Negative); Nitrate Urine Negative (Negative); Protein Urine Negative (Negative); Urobilinogen Urine 0.2 mg/dL (0.2-1.0); pH Urine 5.5 (5.0-8.0)
[2024-07-23 16:43] LABS: Alanine Aminotransferase 24 U/L (16-63); Albumin Level 3.9 g/dL (3.4-5.0); Alkaline Phosphatase 51 U/L (46-116); Anion Gap 9 mmol/L (4-12); Aspartate Amino Transferase 41 U/L (15-37); Bilirubin,Total 1.2 mg/dL (0.00-1.00); Blood Urea Nitrogen 17 mg/dL (7-18); Calcium 9.3 mg/dL (8.5-10.1); Carbon Dioxide 30 mmol/L (21-32); Chloride 102 mmol/L (98-108); Cholesterol 121 mg/dL (0-200); Estimated Glomerular Filt Rate > 60; Ferritin 20 ng/mL (26-388); Glucose 90 mg/dL (70-99); HDL Direct 54 mg/dL (40-60); Iron 105 ug/dL (65-175); LDL Cholesterol Calculated 45 mg/dL (<130); NT Pro B Type Natriuretic Pept 514 pg/mL (0-450); Osmolality Calculated 293 mOsm/kg (285-295); Potassium 4.4 mmol/L (3.5-5.1); Sodium 141 mmol/L (136-145); Total Protein 7.1 g/dL (6.4-8.2); Triglycerides 109 mg/dL (0-150); Vitamin B12 1429 pg/mL (193-986)
== END 2024-07-23 14:47 | disposition home or self-care (01) ==
PROVIDERS: PCP Internal Medicine; Visit Provider Internal Medicine
DX: I10 Essential (primary) hypertension (principal); E78.2 Mixed hyperlipidemia; N39.0 Urinary tract infection, site not specified; D64.9 Anemia, unspecified; E53.8 Deficiency of other specified B group vitamins; I50.9 Heart failure, unspecified
CPT/HCPCS: 36415; 80053; 80061; 81003; 82607; 82728; 83540; 83880; 85025

== ENCOUNTER 2024-08-13 08:41 | Outpatient (CLI) | payer MEDICARE, OTHER, SELFPAY ==
--- NOTE | ~2024-08-13 | US_ITS ---
US right upper quadrant INDICATION: PROCEDURE: Realtime right upper abdominal ultrasound. COMPARISON: No prior studies for comparison. FINDINGS: The pancreas is normal without focal mass or pancreatic ductal dilation. Liver echotexture is increased, consistent with fatty infiltration. There is normal directional flow in the portal ve in. The gallbladder is normal without stones, gallbladder wall thickening or pericholecystic fluid. Comm on bile duct measures 5 mm. No sonographic Jennings's sign. IMPRESSION: 1: Normal limited abdominal ultrasound. Reviewed, dictated and finalized at location B. IAC SPECIALIST
== END 2024-08-13 08:42 | disposition home or self-care (01) ==
LOC: CHSIMG 08:43
PROVIDERS: PCP Internal Medicine; Visit Provider Internal Medicine
DX: R94.5 Abnormal results of liver function studies (principal); D64.9 Anemia, unspecified
CPT/HCPCS: 76705

== ENCOUNTER 2024-12-17 09:56 | Outpatient (CLI) | payer MEDICARE, OTHER, SELFPAY ==
--- NOTE | ~2024-12-17 | XR_ITS ---
EXAMINATION: XR chest 2V DATE: 12/17/2024 10:17 INDICATION: Cough. Sore throat. TECHNIQUE: Frontal and lateral views of the chest were obtained. COMPARISON: Chest 2 views 11/04/2023 FINDINGS: There is mild scarring at the lung apices. No pleural effusion or pneumothorax. The heart s ize is normal. IMPRESSION: 1. Stable mild scarring at the lung apices. Reviewed, dictated and finalized at location L.
[2024-12-17 10:21] LABS: Hematocrit 36.1 % (37.0-46.0); Hemoglobin 11.7 g/dL (12.4-15.3); Mean Corpuscular HGB Conc 32.4 g/dL (32-36); Mean Corpuscular Hemoglobin 29.4 pg (27.0-31.0); Mean Corpuscular Volume 90.7 fL (78.0-102.0); Mean Platelet Volume 9.9 fl (8.7-11.0); Platelet Count Result 148 K/mm3 (150-420); Red Blood Count 3.98 M/mm3 (4.70-6.10); Red Cell Distribution Width 13.3 % (11.6-14.4); White Blood Count 3.8 K/mm3 (4.8-10.8)
--- OUTSIDE RECORDS SUMMARY | 2024-12-17 10:36 | XMS_ITS | Encounter Summary ---
Author Organization [facility] Address [address] [place] [address] Care Team Providers Care Mill Turner Name Role Phone Michael Addison MD Primary Care Provider [phone] Mary Ellen Monge MD Unavailable Encounter Details Date Type Department Care Team (Late st Contact Info) Description 12/16/2024 1:00 PM CDT Hospital Encounter [facility] Radiation Oncology at [address] [address] Nilesh Craig MD [address] [place] [address] Social History Tobacco Use Types Packs/Day Years Used Date Smoking Tobacco: Former Cigarettes Q uit: 04/29/1979 Smokeless Tobacco: Never Comments:patient is no longe r smoking Alcohol Use Standard Drinks/Week Comments Yes 0 (1 standard drink = 0.6 oz pur e alcohol) very rare AUDIT-C Answer Date Recorded Frequency of Alcohol Consumption Never 06/08/2019 Average Number of Drinks Not on file 019 Frequency of Binge Drinking Not on file 12/2018 PHQ-2 Answer Date Recorded PHQ-2 Score - If the patient scores above 3, please move on to questions 3-9 0 07/17/2021 Sex and Gender Information Value Date Recorded Sex Assigned at Male 12/03/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 Answer Date of Assessment Author Status No 06/01/2019 12:11 PM CDT Acti ve * Do you have serious difficulty walking or climbing stairs? Answer Date of Assessment Author Status No 06/01/2019 12:11 PM CDT Jeanie Cid RN Active * Do you have difficulty dressing or bathing? Answer Date of Assessment Author Status No 06/01/2019 12:11 PM CDT Jeanie Cid RN Active * Because of a physical, mental, or emotional condition, do you have difficulty doing errands alone such as visiting a doctor's office or shopping? Answer Date of Assessment Author Status No 06/01/2019 12:11 PM CDT Jeanie Cid RN Active documented as of this encounter Mental Status * Because of a physical, mental, or emotional condition, do you have serious difficulty concentrating, remembering, or making decisions? Answer Entry Date Author Status No 06/01/2019 12:11 PM CDT Jeanie Cid RN Active documented in this encounter Plan of Treatment Upcoming Encounters Date Type Department Care Team (Late st Contact Info) Description 06/17/2025 2:30 PM CDT Appointment [facility] [address] [place] [address] Mary Ellen Monge MD [address] [place], [place] [phone] 06/27/2025 2:30 PM CDT Office Visit [facility] [address] [place] [address] Mary Ellen Monge MD [address] [place] [address] documented as of this encounter Visit Diagnoses Not on filedocumented in this encounter Additional Health Concerns Assessment Noted Time PHQ-9 Depression Total Score: 0 07/17/20 21 10:41 AM CDT documented as of this encounter Care Teams Mill Turner Relationship Specialty Start Date End Date Michael Addison MD [address] [place] [address] PCP - General INTERNAL MEDICINE 10/14/18 Mary Ellen Monge MD [address] [place] [address] Consulting Physician CARDIOVASCULAR DISEASE 01/29/24 documented as of this encounter
--- OUTSIDE RECORDS SUMMARY | 2024-12-17 10:36 | XMS_ITS | Clinical Summary ---
Author Organization [facility] Address [address] [place] [address] Care Team Providers Care Communication Equipment Mechanic Name Role Phone Michael Addison MD Primary Care Provider Mary Ellen Monge MD Unavailable Allergies No known active allergies Medications finasteride 5 MG tablet Take 1 tablet (5 mg total) by mouth daily. 12/02/2014 Active aspirin EC 81 MG tablet Take 1 tablet (81 mg total) by mouth daily. Active Potassium 99 MG tablet Take 1 tablet by mouth daily. Active atorvastatin 40 MG tablet Take 1 tablet (40 mg total) by mouth nightly at bedtime. 90 tablet 4 05/31/2019 Active pantoprazole EC 40 MG tablet Take 1 tablet (40 mg total) by mouth daily. 3 06/01/2019 Active Multiple Vitamin (ONE-A-DAY MENS OR) Take 1 tablet by mouth daily. Active tamsulosin 0.4 MG Cap Take 1 capsule (0.4 mg total) by mouth daily. 12/30/2020 Active furosemide (LASIX) 20 MG tablet Take 1 tablet (20 mg total) by mouth daily. 03/24/2023 Active Cyanocobalamin (B-12 OR) Place 1 tablet under the tongue every other day. Active cetirizine (ZYRTEC) 5 MG tablet Take 2 tablets (10 mg total) by mouth daily. Active Coenzyme Q10 (CO Q 10) 100 MG Cap Take 200 mg by mouth daily. 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 Renal stones Hypertension GERD (gastroesophageal reflux disease) Erectile dysfunction BPH (benign prostatic hyperplasia) Resolved Problems Problem Noted Date Diagnosed Date Resolved Date Chest pain 06/08/2019 Encounters Date Type Department Care Team Description 12/16/2024 1:00 PM CDT Hospital Encounter [facility] Radiation Oncology at [address] [address] Nilesh Craig MD 12/15/2024 1:00 PM CDT - 12/15/2024 11:59 PM CDT Hospital Encounter [facility] Radiation Oncology at [address] [address] Nilesh Craig MD Discharge Disposition: Home or Self Care (Routine Discharge) 12/15/2024 Travel 12/14/2024 1:00 PM CDT - 12/14/2024 11:59 PM CDT Hospital Encounter [facility] Radiation Oncology at [address] [address] Nilesh Craig MD Discharge Disposition: Home or Self Care (Routine Discharge) 12/13/2024 1:00 PM CDT - 12/13/2024 11:59 PM CDT Hospital Encounter [facility] Radiation Oncology at [address] [address] Nilesh Craig MD Discharge Disposition: Home or Self Care (Routine Discharge) 12/13/2024 Travel 12/06/2024 11:30 AM SUPERVISOR POWDER AND PRIMER CANNING - 12/06/2024 11:59 PM SUPERVISOR POWDER AND PRIMER CANNING Hospital Encounter [facility] Radiation Oncology at [address] [address] Nilesh Craig MD Discharge Disposition: Home or Self Care (Routine Discharge) 12/06/2024 Travel 11/24/2024 Telephone [facility] [address] [place] [address] Mary Ellen Monge MD Results 10/13/2024 11:18 AM SUPERVISOR POWDER AND PRIMER CANNING - 10/13/2024 11:59 PM SUPERVISOR POWDER AND PRIMER CANNING Hospital Encounter [facility] [address] [place] [address] Rach Espinal, Discharge Disposition: Home or Self Care (Routine Discharge) 10/13/2024 Orders Only [facility] [address] [place] [address] Rach Espinal, 10/13/2024 Travel from Last 3 Months Immunizations Name Administration Dates Next Due Influenza (Generic) 09/15/2012 Influenza Adult (Generic) 07/31/2018,02/2017,07/16/2016,08/30/2014,1 10/06/2012 Pneumococcal (Prevnar 13) 04/12/2016 Td (Tenivac) preservative free 08/14/2007 Tdap (Generic) 11/28/2017 Family History Medical History Relation Comments MD Brother Cancer Father Diabetes Mother Relation Status Comments Brother Alive Father Mother Social History Tobacco Use Types Packs/Day Years Used Date Smoking Tobacco: Former Cigarettes Q uit: 04/29/1979 Smokeless Tobacco: Never Tobacco Cessation:Counseling Given: Not Answered Comments:patient is no longer smoking Alcohol Use Standard Drinks/Week Comments Yes [...] Sex Assigned at Male 12/03/2024 3:35 PM SUPERVISOR POWDER AND PRIMER CANNING Legal Sex Male 5:03 PM CDT Gender Identity Not on file Sexual Orientation Not on file Last Filed Vital Signs Vital Sign Reading Time Taken Comments Blood Pressure 142/73 05/28/2024 2:40 PM CDT Pulse 65 05/28/2024 2:40 PM CDT Temperature 36.3 C (97.3 F) 06/01/2019 12:46 PM CDT Respiratory Rate 16 05/28/2024 2:40 PM CDT Oxygen Saturation 96% 05/28/2024 2:40 PM CDT Inhaled Oxygen Concentration - - Weight 96.6 kg (213 lb) 05/28/2024 2:40 PM CDT Height 175.3 cm (5' 9 ) 05/28/2024 2:40 PM CDT Body Mass Index 31.45 05/28/2024 2:40 PM CDT Plan of Treatment Upcoming Encounters Date Type Department Care Team (Late st Contact Info) Description 06/17/2025 2:[address] [facility] [address] [facility] [place] [address] Mary Ellen Monge MD [address] [place], [place] [phone] 06/27/2025 2:30 PM CDT Office Visit [facility] [address] [place] [phone] Mary Ellen Monge MD [address] [place], [place] [phone] Health Maintenance Due Date Last Done Comments ASCVD Statin 1940 Zoster Vaccines (1 of 2) 1989 Annual Medicare Wellness Visit 2004 RSV Immunization or 60+ Years (1 - 1-dose 75+ series) 2014 Pneumococcal Vaccine: 65+ Years (2 of 2 - PPSV23 or PCV20) 06/07/2016 04/12/2016 ASCVD LDL 10/03/2022 10/03/2021, 02/04, 03/03/2020, Additional history exists COVID-19 Vaccine ( - season) 2024 Influenza Adult (#1) 2024 07/31/2018, 06/10/2017, 07/16/2016, Additional history exists DTaP, Tdap and Td Vaccines (2 - Td or Tdap) 11/28/2027 11/28/2017, 08/14/2007 Meningococcal B Vaccine Aged Out No l onger eligible based on patient's age to complete this topic Meningococcal Vaccine Aged Out No turner moises eligible based on patient's age to complete this topic RSV Immunizations Under 20 Months Aged Out No longer eligible based on patient's age to complete this topic Medical Devices Implanted Type Area Hematology Oncology Consultant Device Identifier Shelf Expiration Date Model / Serial / Lot Cv Orsiro Ashish-Rca- [id number] Implanted:05/07 by Panda Iyer do, MD (Quantity not on file) Stent Coronary RCA BIOTRONIK 08/13/2020 [id number] / / [id number] Procedures Procedure Name Priority Date/Time Associated Diagnosis Comments VITAMIN B6 Routine 10/13/2024 11:30 AM SUPERVISOR POWDER AND PRIMER CANNING Other specified polyneuropathies LIPID PANEL Routine 10/03/2021 from Last 3 Months or Most Recently Relevant to Health Maintenance Results * VITAMIN B6 (10/13/2024 11:30 AM SUPERVISOR POWDER AND PRIMER CANNING) VITAMIN B6 S/P/B 18.8 2.1 - 21.7 ng/mL 10/17/2024 2:04 PM SUPERVISOR POWDER AND PRIMER CANNING [facility] Comment: Vitamin supplementation within 24 hours prior to blood draw may affect the accuracy of the results. This test was developed and its analytical performance characteristics have been determined by [place] [place]. It has not been cleared or approved by the U.S. Food and Drug Administration. This assay has been validated pursuant to the CLIA regulations and is used for clinical purposes. Test Performed by [facility], [address] [facility], [place], [place] Dionisio Perkins M.D., Ph.D., Director of Laboratories , CLIA [id number] 10/13/2024 11:3 0 AM SUPERVISOR POWDER AND PRIMER CANNING Rach Espinal DO LABORATORY Final Result [facility] [address] [place] [address], [place] [phone] * LIPID PANEL (10/03/2021) CHOLESTEROL 113 0 - 200 HDL 54 40 - 60 TRIGLYCERIDES 106 0 - 150 LDL (CALCULATED) 38 10/03/2021 us Doc [facility] LABORATORY Final Result from Last 3 Months or Most Recently Relevant to Health Maintenance Insurance MEDICARE [facility] MEDICARE Advance Directives * Full Code (Latest Code Status on File) Date Activated Date Inactivated Comments 05/31/2019 8:26 PM 06/01/2019 3:53 PM * Full Code Date Activated Date Inactivated Comments 05/31/2019 4:37 PM 05/31/2019 8:26 PM Care Teams Communication Equipment Mechanic Relationship Specialty Start Date End Date Michael Addison MD [address] [place] [address] PCP - General INTERNAL MEDICINE 10/14/18 Mary Ellen Monge MD [address] [place] [address] Consulting Physician CARDIOVASCULAR DISEASE 01/29/24
--- OUTSIDE RECORDS SUMMARY | 2024-12-17 10:36 | XMS_ITS | Encounter Summary ---
Author Organization [facility] Address [address] [place] [address] Care Team Providers Care Product Engineer Name Role Phone Michael Addison MD Primary Care Provider [phone] Andrea Ivan MD Unavailable Unavailabl e Ree Marquis APRN, SENIOR MEDICAL BILLING SPECIALIST-C Unavailable [phone] Mary Ellen Monge MD Unavailable Encounter Details Date Type Department Care Team (Late st Contact Info) Description 05/28/2019 Abstract [facility] [address] [place] [phone] Andrea Ivan MD Social History Tobacco Use Types Packs/Day Years Used Date Smoking Tobacco: Former Cigarettes Q uit: 04/29/1979 Smokeless Tobacco: Never Alcohol Use Standard Drinks/Week Comments Yes 0 (1 standard drink = 0.6 oz pur e alcohol) rarely Sex and Gender Information Value Date Recorded Sex Assigned at Male 12/03/2024 3:35 PM PERSONALIZED LIVING MANAGER NURSE Legal Sex Male 5:03 PM CDT Gender Identity Not on file Sexual Orientation Not on file documented as of this encounter Plan of Treatment Upcoming Encounters Date Type Department Care Team (Late st Contact Info) Description 06/17/2025 2:[address] [facility] [address] [place] [address] Mary Ellen Monge MD [address] [place] [address] 06/27/2025 2:30 PM CDT Office Visit [facility] [place] [address] Mary Ellen Monge MD [address] [place] [address] documented as of this encounter Procedures Procedure Name Priority Date/Time Associated Diagnosis Comments PROTHROMBIN TIME, VENOUS Routine 05/27/2019 Renal stones Essential hypertension Coronary artery disease involving [place] coronary artery of [place] heart, angina presence unspecified Ascending aorta dilatation BASIC METABOLIC PANEL Routine 05/27/2019 Renal stones Essential hypertension Coronary artery disease involving [place] coronary artery of [place] heart, angina presence unspecified Ascending aorta dilatation CBC W/DIFF AUTOMATED Routine 05/27/2019 Renal stones Essential hypertension Coronary artery disease involving [place] coronary artery of [place] heart, angina presence unspecified Ascending aorta dilatation MAGNESIUM Routine 05/27/2019 Renal stones Essential hypertension Coronary artery disease involving [place] coronary artery of [place] heart, angina presence unspecified Ascending aorta dilatation documented in this encounter Results * BASIC METABOLIC PANEL (05/27/2019) SODIUM S/P/B 141 POTASSIUM S/P/B 4.6 CO2 31 CHLORIDE S/P/B 103 GLUCOSE 88 mg/dL CALCIUM S/P/B 8.9 BUN 22 CREATININE S/P/B 1.03 0.7 - 1.3 05/27/2019 Andrea Ivan MD LABORATORY Final Resul t * MAGNESIUM (05/27/2019) MAGNESIUM 1.9 05/27/2019 Andrea Ivan MD LABORATORY Final Resul t * PROTHROMBIN TIME, VENOUS (05/27/2019) PROTIME WHOLE BLOOD 10.5 INR WHOLE BLOOD 0.99 05/27/2019 Andrea Ivan MD LABORATORY Final Resul t * CBC W/DIFF AUTOMATED (05/27/2019) WBC 4.3 RBC 4.3 HGB 13.8 HCT 39 MCV 90 MCH 31 MCHC 35 RDW 12 PLT 160 05/27/2019 Andrea Ivan MD LABORATORY Final Resul t documented in this encounter Visit Diagnoses Diagnosis Renal stones Calculus of kidney Essential hypertension Unspecified essential hypertension Coronary artery disease involving [place] coronary artery of [place] heart, angina presence unspecified Ascending aorta dilatation Thoracic aortic ectasia documented in this encounter Care Teams Product Engineer Relationship Specialty Start Date End Date Michael Addison MD [address] [place] [phone] PCP - General INTERNAL MEDICINE 10/14/18 Andrea Ivan MD [address] [place] [address] Attalla Business Sales Consultant CARDIOVASCULAR DISEASE 10/14/18 01/28/24 Ree Marquis APRN, SENIOR MEDICAL BILLING SPECIALIST-C [address] [place] [address] [address] NURSE PRACTITIONER 04/29/19 01/28/24 Mary Ellen Monge MD [address] [place] [address] Consulting Physician CARDIOVASCULAR DISEASE 01/29/24 documented as of this encounter
--- OUTSIDE RECORDS SUMMARY | 2024-12-17 10:36 | XMS_ITS | Encounter Summary ---
Author Organization [facility] Address [address] [place] [address] Care Team Providers Care Flight Operations Engineer Name Role Phone Michael Addison MD Primary Care Provider [phone] Mary Ellen Monge MD Unavailable Encounter Details Date Type Department Care Team (Latest Contact Info) Description 12/15/2024 1:00 PM CDT - 12/15/2024 11:59 PM T Hospital Encounter [facility]iation Oncology at [place] [address] [place] [address] Nilesh Craig MD [address] [place] [address] Discharge Disposition: Home or Self Care (Routine Discharge) Social History Tobacco Use Types Packs/Day Years [...] Sex Assigned at Male 12/03/2024 3:35 PM RHIC SYSTEMS SAFETY ENGINEER Legal Sex Male 5:03 PM CDT Gender [...] Assessment Author Status No 06/01/2019 12:11 PM REJIT Jeanie Cid RN Active * Do you have difficulty dressing or bathing? Answer Date of Assessment Author Status No 06/01/2019 12:11 PM REJIT Jeanie Cid RN Active * Because of a physical, mental, or emotional condition, do you have difficulty doing errands alone such as visiting a doctor's office or shopping? Answer Date of Assessment Author Status No 06/01/2019 12:11 PM Jeanie Zapata RN Active documented as of this encounter Mental Status * Because of a physical, mental, or emotional condition, do you have serious difficulty concentrating, remembering, or making decisions? Answer Entry Date Author Status No 06/01/2019 12:11 PM Jeanie Zapata RN Active documented in this encounter Medications at Time of Discharge aspirin EC 81 MG tablet Take 1 tablet (81 mg total) by mouth daily. atorvastatin 40 MG tablet Take 1 tablet (40 mg total) by mouth nightly at bedtime. 90 tablet 4 05/31/2019 cetirizine (ZYRTEC) 5 MG tablet Take 2 tablets (10 mg total) by mouth daily. Coenzyme Q10 (CO Q 10) 100 MG Cap Take 200 mg by mouth daily. Cyanocobalamin (B-12 OR) Place 1 tablet under the tongue every other day. finasteride 5 MG tablet Take 1 tablet (5 mg total) by mouth daily. 12/02/2014 furosemide (LASIX) 20 MG tablet Take 1 tablet (20 mg total) by mouth daily. 03/24/2023 metoprolol tartrate (LOPRESSOR) 25 MG tablet Take 1 tablet by mouth twice daily 180 tablet 3 09/06/2024 Multiple Vitamin (ONE-A-DAY MENS OR) Take 1 tablet by mouth daily. pantoprazole EC 40 MG tablet Take 1 tablet (40 mg total) by mouth daily. 3 06/01/2019 Potassium 99 MG tablet Take 1 tablet by mouth daily. tamsulosin 0.4 MG Cap Take 1 capsule (0.4 mg total) by mouth daily. 12/30/2020 documented as of this encounter Plan of Treatment Upcoming Encounters Date Type Department Care Team (Late st Contact Info) Description 06/17/2025 2:30 PM CDT Appointment [address] [place] [address] Mary Ellen Monge MD [address] [place], [place] [phone] 06/27/2025 2:30 PM CDT Office Visit [facility] [place] [phone] Mary Ellen Monge MD [address] [place], [place] [phone] documented as of this encounter Visit Diagnoses Not on filedocumented in this encounter Additional Health Concerns Assessment Noted Time PHQ-9 Depression Total Score: 0 07/17/20 21 10:41 AM CDT documented as of this encounter Care Teams Flight Operations Engineer Relationship Specialty Start Date End Date Michael Addison MD [address] [place] [phone] PCP - General INTERNAL MEDICINE 10/14/18 Mary Ellen Monge MD [address] [place], [place] [address] Consulting Physician CARDIOVASCULAR DISEASE 01/29/24 documented as of this encounter
--- OUTSIDE RECORDS SUMMARY | 2024-12-17 10:37 | XMS_ITS | Data Portability ---
Author Organization [facility], [address] [place] [address] Neurology ([place]) Address [address] [address] Care Team Providers Care Production Leader Name Role Phone MOLINA BEAUCHAMP Primary Care Provider Assessment Encounter Date Assessment Date Assessment LastModified by Organization Details LastModified Time 02/09/2024 02/09/2024 Andre James i is an 83-year-old male who returns for follow-up for what is suspected related to large fiber peripheral neuropathy. At this point, I discussed with him that we need to obtain bilateral lower extremity nerve conduction/EMG. I had sent my heavy line technician in today to schedule this appointment. Once we have completed this, we will determine next steps in workup. I would like to see him back in six months in follow-up. I personally spent a total of 15 minutes on the patient on this date of service including both wzmk-bh-dzyt and ohr-zdvi-xb-face time excluding any separately reportable services. 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 At this point, my concern is he has proprioception intact peripherally and this may be related to a spinal issue. I gave him the option to proceed with cervical, thoracic and lumbar spine MRI imaging. At this point, we discussed if we find a structural etiology, the next consideration would be to refer to interventional pain specialist or a surgeon. At this point, he would like to defer this. Regarding the neuropathy, the presentation of symptoms has remained unchanged. He does not wish to return to therapy for balance as this has not helped him in the past. For now, we will monitor and see him back in 1 year. I personally spent a total of 10 minutes on the patient on this date of service including both sxnd-rz-hhlh and ydj-ljha-ug-face time excluding any separately reportable services. martín leathashania Not available 08/09/2024 15:14:36 Plan of Treatment Reminders Order Date Submit Date Provider Last Modified By Organization Details Last Modified Time Details Appointments Establish ed Patient 15.EST 2024 01:30P M Dr. Rach Espinal Not available Not available Not available Lab vitamin B6 (pyridoxi ne), plasma 2023 024 [facility], [address] [place] [address] , [place], [address], 10/01/2024 14:36:54 ESR (erythroc yte sedimenta tion rate), blood 2023 024 [facility], [address] [place] [address], [id number], 06/01/2024 17:14:06 unlisted lab - CRP ([facility]) 2023 024 [facility], [address] [place] [address], [id number], 06/01/2024 17:14:06 JEISON (antinucl ear antibodie s) screen, serum 2023 024 [facility], [address] [place] [address], [id number], 06/01/2024 17:14:06 protein electroph oresis panel, serum or plasma 2023 024 [facility], [address] [place] [address], [id number], 06/01/2024 17:14:06 electroph oresis panel, urine 2023 024 [facility], [address] [place] [address], [id number], 06/01/2024 17:14:06 immunofix ation, serum 2023 024 [facility], [address] [place] [address], [id number], 06/01/2024 17:14:07 vitamin B12, serum 2023 024 [facility], [address] [place] [address], [id number], 06/01/2024 17:14:07 vitamin B6 + metabolit es panel, serum or plasma 2023 024 [facility], [address] [place] [address], [id number], 06/01/2024 17:14:07 hemoglobi n A1c + average glucose, QN, blood 2023 024 [facility], [address] [place] [address], [id number], 06/01/2024 17:14:07 Referral None recorded. Procedures None recorded. Surgeries None recorded. Imaging None recorded. Medication Orders None recorded. Patient TargetsNo targets recorded. Patient InstructionsNo instructions recorded. Reason for Referral None Reported. Results Created Date Observation Date Name Description Value Unit Range Abnormal Flag Note LastModifiedBy Organization Detail LastModifiedTime Result Notes None recorded. Problems Name Problem SNOMED Code Status Onset Date Resolution Date Notes Provider Name and Address Organization Details Recorded Time Disorder of the peripheral nervous system 95083479 Active 2023 Rach Espinal MD [address] [place] [address], [phone], [facility] 4 14:24:41 Spondylosis 9338868 Active 2023 Rach Espinal MD [address] [place], [phone], [facility] 4 14:26:45 Abnormal gait 27165978 Active 2023 Rach Espinal MD [address] [place] [address], [address], [facility] 4 14:26:57 Polyneuropathy 61970267 Active 2023 Rach Espinal MD [address] [place] [address], [phone], [facility] 4 14:28:31 Peripheral motor neuropathy 66782568 Active 2023 Cyndee Mcghee null, [facility] 4 10:31:08 Pain in lumbar spine 189975450 Active 2023 Cyndee Mcghee null, [facility] 4 10:31:35 Degeneration of intervertebral disc 11252036 Active 2023 [facility] 10:32:12 Idiopathic peripheral neuropathy 95578419 Active 2023 Rach Espinal MD [address] [place] [address], [phone], [facility] 4 15:58:48 Problem Notes None recorded. Procedures Surgical History Date Name Laterality Status Provider Name and Address Organization Details Recorded Time 4 [facility] Procedure completed Rach Espinal MD [address] [place] [address], [phone], [facility] 03/08/2024 16:30:49 Imaging Results None recorded. Procedure Notes None recorded. Medical Equipment None Reported. Medications Name Sig Start Date Stop Date Status Note LastModified by Organization Details LastModified Time celecoxib 200 mg capsule TAKE 1 CAPSULE BY MOUTH ONCE DAILY active Not Available Not Available No t Available amoxicillin 500 mg capsule 02/08 completed Not Available Not Available Not Available atorvastati n 40 mg tablet TAKE 1 TABLET BY MOUTH ONCE DAILY active Not Available Not Available No t Available cetirizine 5 mg tablet TAKE 1 TABLET BY MOUTH ONCE DAILY active Not Available Not Available No t Available clopidogrel 75 mg tablet active Not Available Not Available Not Available peg-electro lyte solution 420 gram oral solution TAKE DIRECTED active Not Available Not Available No t Available potassium 99 mg tablet Take by oral route. active Not Available Not Available No t Available tamsulosin 0.4 mg capsule active Not Available Not Available Not Available pantoprazol e 40 mg tablet,cristopher yed release TAKE 1 TABLET BY MOUTH TWICE DAILY active Not Available Not Available No t Available furosemide 20 mg tablet TAKE 1 TABLET BY MOUTH ONCE DAILY active Not Available Not Available No t Available metoprolol succinate ER 25 mg tablet,exte nded release 24 hr active Not Available Not Available Not Available triamcinolo ne acetonide 0.1 % lotion APPLY A THIN LAYER TO THE AFFECTED AREAS TOPICALLY AT BEDTIME active Not Available Not Available No t Available fluticasone propionate 50 mcg/actuati on nasal spray,suspe nsion active Not Available Not Available Not Available finasteride 5 mg tablet TAKE 1 TABLET BY MOUTH ONCE DAILY active Not Available Not Available No t Available metoprolol tartrate 25 mg tablet TAKE 1 TABLET BY MOUTH TWICE DAILY active Not Available Not Available No t Available furosemide active Not Available Not Av ailable Not Available multivitami n active Not Available Not Available Not Available Xarelto 20 mg tablet TAKE 1 TABLET BY MOUTH ONCE DAILY WITH EVENING MEAL active Not Available Not Available No t Available Metamucil [facility] Fiber active Not Available Not Available Not Available Vitals Date Recorded Body height Body mass index (BMI) Body weight Heart rate Oxygen saturation Oxygen saturation in Arterial blood by Pulse oximetry Systolic blood pressure Diastolic blood pressure Provider Name and Address Organization Details Last Updated DateTime 4 173.99 cm 32.2 kg/m2 96802.3 6 g 61 /min 99 % 99 % 135 mm[Hg] 78 mm[Hg] Adry Fordnoam [facility] 4 15:26:44 Date Recorded Body height Body mass index (BMI) Body weight Heart rate Oxygen saturation Oxygen saturation in Arterial blood by Pulse oximetry Systolic blood pressure Diastolic blood pressure Provider Name and Address Organization Details Last Updated DateTime 4 173.99 cm 32 kg/m2 53526.4 1 g 53 /min 98 % 98 % 128 mm[Hg] 77 mm[Hg] Ana Figueroad [facility] 4 13:55:48 Social History None recorded. Functional Status None recorded. Mental Status None recorded. Family History Nothing Reported. Medical History No medical history recorded. Past Encounters Encounter ID Performer Location Encounter Start Date Encounter Closed Date Diagnosis/Indication Diagnosis SNOMED-CT Code Diagnosis ICD10 Code Diagnosis Note [id number] Rach Espinal MD [facility] Neurology ([place]) [id number] [place] [address] 02/09/2024 15:15:17 02/16/2024 12:29:29 Idiopathic peripheral neuropathy 89571518 G60.9 [id number] Rach Espinal MD [facility] Neurology ([place]) [id number] [place] [address] 03/08/2024 11:00:46 03/09/2024 15:09:31 Idiopathic peripheral neuropathy 73937520 G60.9 [id number] Rach Espinal MD [facility] Neurology ([place]) [id number] [place] [address] 08/09/2024 13:42:54 08/09/2024 15:56:34 Spondylosis 1677248 M47.9 Abnormal gait 87306914 R 26.81 Polyneuropathy 60236130 G62.89 Health Concerns Section Related Observation LastModified by Organization Detai ls LastModified Time None Recorded Concern Status LastModified by Organization Details LastModified Time None Recorded Advance Directives Directive None Recorded Payers Encounter Date Sequence Insurance Name Policy Number Policy Mancilla Covered Member ID Mancilla Member ID Guarantor Name 02/09/2024 1 [place] Andre Levine Bekah [id number] Andre Godfrey 03/08/2024 1 [place] Levine Bekah [id number] Andre Godfrey 08/09/2024 1 [place] Andre Julianna Bekah [id number] Andre Godfrey Notes Date Note Type Note Provider Name and Address Organization Details Recorded Time 02/09/2024 text/html Andre James i is an 83-year-old male who returns for follow-up for what is suspected related to large fiber peripheral neuropathy. He has been dealing with symptoms ongoing for several years. He has almost a chronic sensation in the feet bilaterally. It almost feels as if he is wearing socks even though he is not wearing socks. He has a history of a left ankle injury. In addition, he has a history of a prior disc bulge at L5-S1 with facet arthropathy and moderate to moderately severe neural foraminal stenosis on the right and mild to moderate on the left. We had discussed at last visit proceeding with a nerve conduction/EMG. This has not been completed within that time. He has had no significant change in symptoms. He feels as if he walks like an old man but ultimately he is dealing with bilateral meniscal tears. The left side has healed. The right side he is currently bracing. In addition to this, he has these historical degenerative changes. He states he is overall stable. He is still riding a bike at least 10 miles per day. Rach Espinal MD [address] [place] [address], [phone], [facility] 02/13/2024 09:30:06 08/09/2024 text/html Andre James i is an 84-year-old male who returns for follow-up for large fiber peripheral neuropathy. In the interim since I last saw him, he has remained stable. He reports no progression of symptoms. He is still frustrated and struggles with his degree of imbalance. 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 Historically he has had disc bulging distally at the L5-S1 with moderate to severe neural foraminal stenosis on the right and mild to moderate on the left. There were findings suggestive of a bilateral L5-S1 radiculopathy when I last saw him. We proceeded with additional lab work including CRP, A1c, serum protein electrophoresis, urine protein electrophoresis, serum immunofixation, vitamin B12 and vitamin B6. His vitamin B6 level was slightly elevated. For this reason, we discussed discontinuing over the counter supplementation with B6. He has since changed his current vitamin regimen to reflect this. We deferred any additional imaging secondary to lack of desire for the patient to proceed with any therapeutic measures such as surgery or injections. He expresses the same concerns today that at his age he would not tolerate surgical procedures as well. Rach Espinal MD [address] [place] [address], [phone], [facility] 08/11/2024 12:56:41
[2024-12-17 10:59] LABS: Influenza A QL RT-PCR Positive (Negative); Influenza B QL RT-PCR Negative (Negative); RSV RNA, RT-PCR Negative (Negative); SARS-CoV-2 RNA PCR Negative (Negative)
== END 2024-12-17 09:57 | disposition home or self-care (01) ==
PROVIDERS: PCP Internal Medicine; Visit Provider Internal Medicine
DX: R05.9 Cough, unspecified (principal); J06.9 Acute upper respiratory infection, unspecified
CPT/HCPCS: 36415; 71046; 85027; 87637

== ENCOUNTER 2025-09-22 09:45 | Outpatient (CLI) | payer MEDICARE, OTHER, SELFPAY ==
[2025-09-22 12:22] LABS: Hematocrit 38.2 % (37.0-46.0); Hemoglobin 12.7 g/dL (12.4-15.3); Mean Corpuscular HGB Conc 33.2 g/dL (32-36); Mean Corpuscular Hemoglobin 30.5 pg (27.0-31.0); Mean Corpuscular Volume 91.8 fL (78.0-102.0); Platelet Count Result 172 K/mm3 (150-420); Red Blood Count 4.16 M/mm3 (4.70-6.10); White Blood Count 4.5 K/mm3 (4.8-10.8)
[2025-09-22 12:35] LABS: Alanine Aminotransferase 20 U/L (6-50); Albumin Level 4.4 g/dL (3.5-5.1); Alkaline Phosphatase 53 U/L (38-126); Anion Gap 8 mmol/L (4-12); Aspartate Amino Transferase 46 U/L (17-59); Bilirubin,Total 1.4 mg/dL (0.2-1.3); Blood Urea Nitrogen 21 mg/dL (9-20); Calcium 9.4 mg/dL (8.4-10.2); Carbon Dioxide 27 mmol/L (22-30); Chloride 108 mmol/L (98-107); Cholesterol 126 mg/dL (0-200); Estimated Glomerular Filt Rate > 60; Glucose 95 mg/dL (65-110); HDL Direct 58 mg/dL; Iron 111 ug/dL (49-181); Magnesium 2.2 mg/dL (1.6-2.3); Osmolality Calculated 299 mOsm/kg (285-295); Potassium 4.5 mmol/L (3.4-5.0); Sodium 143 mmol/L (137-145); Total Protein 6.8 g/dL (6.3-8.2); Triglycerides 110 mg/dL (<150)
[2025-09-22 12:41] LABS: Hemoglobin A1C 5.2 % (<5.7)
[2025-09-22 12:44] LABS: Add Urine Microscopic? NO; Appearance Urine Clear (Clear); Glucose Urine UA Negative (Negative); Leukocyte Esterase Ur Negative (Negative); Nitrate Urine Negative (Negative); Specific Grav Ur 1.025 (1.010-1.020)
[2025-09-22 12:47] LABS: NT Pro B Type Natriuretic Pept 298 pg/mL (19.9-100)
--- OUTSIDE RECORDS SUMMARY | 2025-09-22 12:48 | XMS_ITS | Patient Health Record ---
Author Organization [facility] Address [address] [place], [place] [id number] Care Team Providers Care Corporate Law Specialist Name Role Phone GUERO James Unavailable [phone] Michael Addison Unavailable Unavailable Reason For Referral No Information Medications Medication SIG (Take, Route, Frequency, Duration) Notes Start Date End Date Status Finasteride 5 MG Oral Tablet ORAL finasteride 5 MG Oral TabletOriginal Medicationfinasteride 5 MG Oral Tablet *Reorder from [employer] for eRx and Interaction Alerts* 09/11/2020 Active atorvastatin 40 MG Oral Tablet ORAL atorvastatin 40 MG Oral TabletOriginal Medicationatorvastatin 40 MG Oral Tablet *Reorder from [employer] for eRx and Interaction Alerts* 09/11/2020 Active terazosin 5 MG Oral Capsule ORAL terazosin 5 MG Oral CapsuleOriginal Medicationterazosin 5 MG Oral Capsule *Reorder from [employer] for eRx and Interaction Alerts* 09/11/2020 Active Metoprolol Tartrate 25 MG Oral Tablet ORAL metoprolol tartrate 25 MG Oral TabletOriginal Medicationmetoprolol tartrate 25 MG Oral Tablet *Reorder from [employer] for eRx and Interaction Alerts* 09/11/2020 Active Social History Social History Additional Details Category Social Info Options Details Migrated Social History Migrated Social History Smoking Status : Former tobacco user , History of tobacco use : , Alcohol intake : Plan Of Treatment No Information Insurance Providers Payer Name Payer Address Payer Phone Subscriber Number Group Number Insured Name Patient Relationship to Insured Coverage Start Date Coverage End Date Medicare Part [place] [address] [place] [phone] [id number] ANALIA GAINES Self - patient is the insured [employer] [address] [address] [facility] [address] [id number] ANALIA GAINES Self - patient is the insured
[2025-09-22 12:54] LABS: Free T4 Free Thyroxine 0.91 ng/dL (0.78-2.19)
[2025-09-22 13:08] LABS: Thyroid Stimulating Hormone 2.770 uIU/mL (0.465-4.680)
[2025-09-22 13:12] LABS: Ferritin 13.10 ng/mL (11.1-264)
[2025-09-22 13:29] LABS: Vitamin B12 > 1000.0 pg/mL (239-931)
== END 2025-09-22 09:46 | disposition home or self-care (01) ==
PROVIDERS: PCP Internal Medicine; Visit Provider Internal Medicine
DX: R10.9 Unspecified abdominal pain (principal); E78.2 Mixed hyperlipidemia; E53.8 Deficiency of other specified B group vitamins; D64.9 Anemia, unspecified; I48.0 Paroxysmal atrial fibrillation; G62.9 Polyneuropathy, unspecified; R73.01 Impaired fasting glucose; I50.9 Heart failure, unspecified
CPT/HCPCS: 36415; 80053; 80061; 81003; 82607; 82728; 83036; 83540; 83735; 83880; 84439; 84443; 85027